=== PATIENT | female | born 1940 | race Caucasian/White ===

== ENCOUNTER 2017-01-08 12:08 | Inpatient (IN) | payer MEDICARE ==
[~2017-01-08] VITALS: Ht 165.1 cm; Wt 52.9 kg
[2017-01-08] VITALS (17 sets, daily range): BP systolic 102–159; BP diastolic 4–87; PULSE 56–78; RESP 15–24; TEMP 97.3–98.3; O2SAT 96–98
[~2017-01-08 12:08] MED LIST: ASPI81TA82 PO; GLUCTAB PO; LIPI10TA PO; LISI-366 PO; METO50CR PO; NORV10TA PO; RIVA20 PO
--- NOTE | 2017-01-08 12:43 | PD ---
HPI Chief Complaint: GI Complaint Time Seen by Provider: 12:43 Travel History International Travel<30 days: No Contact w/Intl Traveler<30days: No Traveled to known affect area: No History of Present Illness HPI 76-year-old female with history of A. fib, on Xarelto, hypertension, cervical cancer, diabetes, remote ICH, presents to the emergency department for evaluation of coffee-ground emesis 1 today. Patient resides at [facility]. She is transferred here for further evaluation of this. Patient denies any pain. She is overall a poor historian but states she has not been feeling well today. Does report nausea and vomiting. Reports abdominal cramping and loose stools. Denies any urinary symptoms. Patient has no other symptoms to report at this time. PFSH Past Medical History Atrial Fibrillation: Yes Cancer: Yes (CERVICAL CANCER) Cardiovascular Problems: Yes Diabetes: Yes Patient Takes Glucophage: No Endocrine: Yes Genitourinary: No Hepatitis: No Hiatal Hernia: No Hypertension: Yes Immune Disorder: No Musculoskeletal: No Neurologic: Yes (ICH) Psychiatric: No Reproductive: No Respiratory: Yes Thyroid Disease: No Tetanus Vaccination: Unknown Dilation and Curettage (D&C): Yes Past Surgical History AICD: No Body Medical Devices: PORT RT CHEST Gynecologic Surgery: Yes (tandem and ovoid) Joint Replacement: No Pacemaker: No Other Surgery: Yes (hx of skin grafts) Social History Alcohol Use: Yes (socially) Tobacco Use: No Substance Use: No Allergies-Medications (Allergen,Severity, Reaction): Coded Allergies: No Known Allergies (Unverified , 01/01/15) Reported Meds & Prescriptions Reported Meds & Active Scripts Active Reported Xarelto (Rivaroxaban) 15 Mg Tab 15 Mg PO DAILY Poly-Iron 150 (Polysaccharide Iron Complex) 150 Mg Cap 150 Mg PO DAILY One Daily (Multiple Vitamin) 1 Tab 1 Tab PO DAILY Omeprazole 20 Mg Tab 20 Mg PO DAILY Nifedipine ER 24 HR (Nifedipine) 90 Mg Tab 90 Mg PO DAILY Mirtazapine 7.5 Mg Tab 7.5 Mg PO HS Metoprolol Tartrate 50 Mg Tab 50 Mg PO BID Metformin (Metformin HCl) 500 Mg Tab 500 Mg PO DAILY With a meal Lisinopril 40 Mg Tab 40 Mg PO DAILY Lactobacillus Acidophilus 1 Tab Tab 1 Tab PO BID Keppra Liq (Levetiracetam) 500 Mg/5 Ml Soln 100 Mg PO BID Hydralazine HCl 25 Mg Tablet 25 Mg PO BID Flagyl (Metronidazole) 500 Mg Tab 500 Mg PO TID Cipro (Ciprofloxacin HCl) 500 Mg Tab 500 Mg PO BID Atorvastatin (Atorvastatin Calcium) 10 Mg Tab 10 Mg PO HS Aspirin 325 Mg Tab 325 Mg PO DAILY Amlodipine (Amlodipine Besylate) 10 Mg Tab 10 Mg PO DAILY Review of Systems ROS Limitations: Poor Historian Except as stated in HPI: all other systems reviewed are Neg Physical Exam Exam Limitations: Poor Historian Narrative GENERAL: Thin elderly female patient, lying in bed, in no acute distress. SKIN: Focused skin assessment warm/dry. Pallor HEAD: Atraumatic. Normocephalic. EYES: Pupils equal and round. No scleral icterus. No injection or drainage. ENT: No nasal bleeding or discharge. Mucous membranes pink and moist. NECK: Trachea midline. No JVD. CARDIOVASCULAR: Regular rate and irregular rhythm. RESPIRATORY: No accessory muscle use. Clear to auscultation. Breath sounds equal bilaterally. GASTROINTESTINAL: Abdomen soft, non-tender, nondistended. Hepatic and splenic margins not palpable. RECTAL EXAM: No masses or tenderness, stool is brown. MUSCULOSKELETAL: No obvious deformities. No clubbing. No cyanosis. No edema. NEUROLOGICAL: Awake and alert. No obvious cranial nerve deficits. Motor grossly within normal limits. Normal speech. Data Data Last Documented VS Vital Signs Date Time Temp Pulse Resp B/P Pulse Ox O2 Delivery O2 Flow Rate FiO2 01/08/17 13:00 64 16 102/51 98 Room Air 01/08/17 12:25 97.8 Orders Complete Blood Count With Diff (01/08/17 12:42) Comprehensive Metabolic Panel (01/08/17 12:42) Prothrombin Time / Inr (Pt) (01/08/17 12:42) Act Partial Throm Time (Ptt) (01/08/17 12:42) Urinalysis - C+S If Indicated (01/08/17 12:42) Type And Screen (01/08/17 12:42) Ecg Monitoring (01/08/17 12:42) Iv Access Insert/Monitor (01/08/17 12:42) Oximetry (01/08/17 12:42) Pantoprazole Inj (Protonix Inj) (01/08/17 12:45) Sodium Chloride 0.9% Flush (Ns Flush) (01/08/17 12:45) Electrocardiogram (01/08/17 ) Sodium Chlorid 0.9% 500 Ml Inj (Ns 500 M (01/08/17 12:45) Red Blood Cells (Rbc) (01/08/17 13:04) Blood Product Administration .UPON TRANSFUSION (01/08/17 13:04) Sodium Chlor 0.9% 250 Ml Inj (Ns 250 Ml (01/08/17 13:15) Pantoprazole Inj (Protonix Inj) (01/08/17 13:15) Admit Order (Ed Use Only) (01/08/17 13:55) Labs Laboratory Tests Test 01/08/17 01/08/17 12:40 13:04 White Blood Count 14.4 TH/MM3 Red Blood Count 1.88 MIL/MM3 Hemoglobin 5.4 GM/DL Hematocrit 16.6 % Mean Corpuscular Volume 88.4 FL Mean Corpuscular Hemoglobin 28.9 PG Mean Corpuscular Hemoglobin 32.7 % Concent Red Cell Distribution Width 14.9 % Platelet Count 535 TH/MM3 Mean Platelet Volume 7.7 FL Neutrophils (%) (Auto) 87.7 % Lymphocytes (%) (Auto) 7.6 % Monocytes (%) (Auto) 4.3 % Eosinophils (%) (Auto) 0.3 % Basophils (%) (Auto) 0.1 % Neutrophils # (Auto) 12.6 TH/MM3 Lymphocytes # (Auto) 1.1 TH/MM3 Monocytes # (Auto) 0.6 TH/MM3 Eosinophils # (Auto) 0.0 TH/MM3 Basophils # (Auto) 0.0 TH/MM3 CBC Comment AUTO DIFF Differential Total Cells 100 Counted Neutrophils % (Manual) 81 % Band Neutrophils % 10 % Lymphocytes % 7 % Monocytes % 1 % Basophils % 1 % Neutrophils # (Manual) 13.1 TH/MM3 Differential Comment FINAL DIFF MANUAL Platelet Estimate HIGH Platelet Morphology Comment NORMAL Ovalocytes 1+ Acanthocytes OCC Keratocytes OCC Prothrombin Time 12.1 SEC Prothromb Time International 1.1 RATIO Ratio Activated Partial 22.7 SEC Thromboplast Time Sodium Level 142 MEQ/L Potassium Level 4.6 MEQ/L Chloride Level 106 MEQ/L Carbon Dioxide Level 24.9 MEQ/L Anion Gap 11 MEQ/L Blood Urea Nitrogen 45 MG/DL Creatinine 1.53 MG/DL Estimat Glomerular Filtration 33 ML/MIN Rate Random Glucose 239 MG/DL Calcium Level 8.3 MG/DL Total Bilirubin 0.2 MG/DL Aspartate Amino Transf 15 U/L (AST/SGOT) Alanine Aminotransferase 13 U/L (ALT/SGPT) Alkaline Phosphatase 62 U/L Total Protein 5.7 GM/DL Albumin 2.5 GM/DL Blood Type A POSITIVE Antibody Screen NEGATIVE Crossmatch Leukocyte-Reduced Red Blood Cells Blood Bank Comment MDM Medical Decision Making Medical Screen Exam Complete: Yes Emergency Medical Condition: Yes Medical Record Reviewed: Yes Differential Diagnosis GI bleed upper versus lower versus esophageal varices versus peptic ulcer disease versus gastroenteritis versus gastritis versus colitis versus symptomatic anemia versus electrolyte abnormality Narrative Course 76 year-old female presents to the emergency department for evaluation. Patient appears without distress. Abdominal exam is benign. Francisco Javier-prompt of stool is positive. Abrasion is given IV Protonix. Half-normal saline bolus. Labs are drawn to include type and screen. Laboratory Tests Test 01/08/17 12:40 White Blood Count 14.4 TH/MM3 Red Blood Count 1.88 MIL/MM3 Hemoglobin 5.4 GM/DL Hematocrit 16.6 % Mean Corpuscular Volume 88.4 FL Mean Corpuscular Hemoglobin 28.9 PG Mean Corpuscular Hemoglobin 32.7 % Concent Red Cell Distribution Width 14.9 % Platelet Count 535 TH/MM3 Mean Platelet Volume 7.7 FL Neutrophils (%) (Auto) 87.7 % Lymphocytes (%) (Auto) 7.6 % Monocytes (%) (Auto) 4.3 % Eosinophils (%) (Auto) 0.3 % Basophils (%) (Auto) 0.1 % Neutrophils # (Auto) 12.6 TH/MM3 Lymphocytes # (Auto) 1.1 TH/MM3 Monocytes # (Auto) 0.6 TH/MM3 Eosinophils # (Auto) 0.0 TH/MM3 Basophils # (Auto) 0.0 TH/MM3 CBC Comment AUTO DIFF Prothrombin Time 12.1 SEC Prothromb Time International 1.1 RATIO Ratio Activated Partial 22.7 SEC Thromboplast Time Sodium Level 142 MEQ/L Potassium Level 4.6 MEQ/L Chloride Level 106 MEQ/L Carbon Dioxide Level 24.9 MEQ/L Anion Gap 11 MEQ/L Blood Urea Nitrogen 45 MG/DL Creatinine 1.53 MG/DL Estimat Glomerular Filtration 33 ML/MIN Rate Random Glucose 239 MG/DL Calcium Level 8.3 MG/DL Total Bilirubin 0.2 MG/DL Aspartate Amino Transf 15 U/L (AST/SGOT) Alanine Aminotransferase 13 U/L (ALT/SGPT) Alkaline Phosphatase 62 U/L Total Protein 5.7 GM/DL Albumin 2.5 GM/DL Patient is with hemoglobin of 5.9. 2 units of packed red blood cells are ordered. Leukocytosis of 14.4, neutrophilia of 12.6, possibly due to fluid deficit. BUN is 45 with a creatinine of 1.53. GFR 33. I discussed the patient with my attending physician. Patient will be started on Protonix drip. A call is placed to . Patient's primary care provider is Dr. Xiong. [facility] are contacted for admission. 1328 I spoke with JOE Chris electronics system mechanic. He recommends admission to hospital and will consult on the patient [address] Scott. Patient will be admitted to the [facility]. She requested ICU admission. 1540 Pt remains in ED; having large amount of coffee ground emesis; + hemaprompt. Call placed to for update/ Pt started on sandostatin gtt. [address] Chen. He is aware of the pt's current situation. Diagnosis Primary Impression: GI bleed Qualified Code: K92.2 - Gastrointestinal hemorrhage, unspecified gastrointestinal hemorrhage type Additional Impressions: Symptomatic anemia Anticoagulants taken within 24 hours prior to hospitalization Admitting Information Admitting Physician Requests: Admit Condition: Stable Donna Chamorro Jan 08, 2017 12:43
[2017-01-08] MEDS ORDERED: LEVE500S PO (12:44)
[2017-01-08] MEDS ORDERED: HYDR-3799 PO (12:44)
[2017-01-08] MEDS ORDERED: LACTTAB8 PO (12:44)
[2017-01-08] MEDS ORDERED: METR-1 PO (12:44)
[2017-01-08] MEDS ORDERED: METF500T PO (12:44)
[2017-01-08] MEDS ORDERED: OMEP20TA PO (12:44)
[2017-01-08] MEDS ORDERED: ATOR10TA15 PO (12:44)
[2017-01-08] MEDS ORDERED: NIFE1TAB PO (12:44)
[2017-01-08] MEDS ORDERED: METO50TA PO (12:44)
[2017-01-08] MEDS ORDERED: ASPI325T PO (12:44)
[2017-01-08] MEDS ORDERED: AMLO10TA2 PO (12:44)
[2017-01-08] MEDS ORDERED: MIRT1TAB PO (12:44)
[2017-01-08] MEDS ORDERED: CIPR-9 PO (12:44)
[2017-01-08] MEDS ORDERED: MULT-207 PO (12:44)
[2017-01-08] MEDS ORDERED: LISI40TA PO (12:44)
[2017-01-08] MEDS ORDERED: SODIUM CHLORIDE 0.9% FLUSH 10 ML FLUSH IVF PRN (12:45)
[2017-01-08] MEDS ORDERED: PANTOPRAZOLE SODIUM 40 MG VIAL IVP ONE (12:45)
[2017-01-08] MEDS ORDERED: NU-IRON PO (12:45)
[2017-01-08] MEDS ORDERED: XARE15TA PO (12:45)
[2017-01-08] MEDS ORDERED: SODIUM CHLORID 0.9% 500 ML INJ 500 ML IV ONE (12:45)
[2017-01-08 12:57] LABS: AUTOMATED NEUTROPHIL # 12.6 TH/MM3 (1.8-7.7); BASOPHIL % 0.1 % (0.0-2.0); EOSINOPHIL % 0.3 % (0.0-4.0); LYMPH % 7.6 % (9.0-44.0); LYMPHOCYTE # 1.1 TH/MM3 (1.0-4.8); MEAN CELL VOLUME 88.4 FL (80.0-100.0); MEAN CORPUSCULAR HEMOGLOBIN 28.9 PG (27.0-34.0); MEAN CORPUSCULAR HGB CONC 32.7 % (32.0-36.0); MONO % 4.3 % (0.0-8.0); NEUT % 87.7 % (16.0-70.0); PLATELET COUNT 535 TH/MM3 (150-450); RED BLOOD COUNT 1.88 MIL/MM3 (4.00-5.30); RED CELL DISTRIBUTION WIDTH 14.9 % (11.6-17.2); WHITE BLOOD COUNT 14.4 TH/MM3 (4.0-11.0)
[2017-01-08 13:01] LABS: HEMO FLAGS AUTO DIFF
[2017-01-08 13:06] LABS: HEMATOCRIT 16.6 % (35.0-46.0)
[2017-01-08 13:12] LABS: APTT (PATIENT) 22.7 SEC (24.3-30.1); INTERNATIONAL NORMALIZED RATIO 1.1 RATIO; PROTHROMBIN TIME - PATIENT 12.1 SEC (9.8-11.6)
[2017-01-08 13:14] LABS: ALT (GPT) 13 U/L (10-53); ANION GAP 11 MEQ/L (5-15); AST (GOT) 15 U/L (15-37); BICARBONATE 24.9 MEQ/L (21.0-32.0); BLOOD UREA NITROGEN 45 MG/DL (7-18); CHLORIDE 106 MEQ/L (98-107); GLOMERULAR FILTRATION RATE 33 ML/MIN (>89); POTASSIUM 4.6 MEQ/L (3.5-5.1); SODIUM (NA) 142 MEQ/L (136-145)
[2017-01-08] MEDS ORDERED: SODIUM CHLOR 0.9% 250 ML INJ 250 ML IV ONE (13:15)
[2017-01-08 13:16] LABS: ALKALINE PHOSPHATASE 62 U/L (45-117); TOTAL BILIRUBIN ADULT 0.2 MG/DL (0.2-1.0)
[2017-01-08] MEDS: PANTOPRAZOLE INJ 80 MG in SODIUM CHLORIDE 0.9% INJ 100 ML IV SCH ×2 (13:32→23:27)
[2017-01-08 13:48] LABS: ACANTHOCYTES OCC (NORMAL); BANDS 10 % (0-6); BASOPHILS 1 % (0-2); NEUTROPHIL # MANUAL DIFF 13.1 TH/MM3 (1.8-7.7); OVALOCYTES 1+ (NORMAL); POLYS (SEG NEUTROPHILS) 81 % (16-70); WBC DIFF SAMPLE 100
[2017-01-08 13:49] LABS: KERATOCYTES OCC (NORMAL); PLATELET ESTIMATE SMEAR HIGH (NORMAL)
[2017-01-08 13:50] LABS: PLATELET MORPHOLOGY NORMAL (NORMAL); SCAN/DIFF FINAL DIFF MANUAL
[2017-01-08] MEDS ORDERED: ONDANSETRON HCL 4 MG/2 ML VIAL IVP PRN (14:00)
[2017-01-08] MEDS ORDERED: SODIUM CHLORIDE 0.9% FLUSH 10 ML FLUSH IV FLUSH PRN (14:00)
[2017-01-08] MEDS ORDERED: NALOXONE HCL 0.4 MG/ML AMP IV PRN (14:00)
[2017-01-08] MEDS: D5-1/2 NS + KCL 20 MEQ INJ 1,000 ML IV SCH ×2 (14:27→23:27)
[2017-01-08] MEDS: OCTREOTIDE INJ 500 MCG in SODIUM CHLORID 0.9% 500 ML INJ 500 ML IV SCH (16:18)
--- NOTE | 2017-01-08 16:40 | RADRPT ---
EXAM DATE/TIME: 01/08/2017 15:56 [facility] COMPARISON: No previous studies available for comparison. INDICATIONS : Nausea and vomiting MEDICAL HISTORY : Unknown SURGICAL HISTORY : Infus a port ENCOUNTER: Initial ACUITY: 1 day PAIN SCORE: Non-responsive. LOCATION: Bilateral chest FINDINGS: There is lobar consolidation left lower lung causing loss of delineation of the entire left hemidiaph ragm and inferior left heart border. There is also meniscal interface laterally suggesting possible coexistent left pleural effusion. The right lung is clear. The heart is normal in size. The centra l bronchopulmonary markings are fairly well delineated. [id number]-[id number] catheter tip projects over the cavoatrial junction. CONCLUSION: Left lower lobar consolidation and possible associated pleural effusion. Ronni Casas MD on January 08, 2017 at 16:37 Board Certified Radiologist. This report was verified electronically.
[2017-01-08] MEDS ORDERED: GLUCAGON 1 MG/ML VIAL OTHER PRN (17:45)
[2017-01-08] MEDS ORDERED: DEXTROSE 50% IN WATER 50 ML VIAL(D50) IV PRN (17:45)
--- NOTE | 2017-01-08 17:59 | HHI.HP ---
[facility] Kathy Xiong M.D. Admission Diagnosis GI bleed; symptomatic anemia Diagnoses: Chief Complaint: coffee ground emesis Travel History International Travel<30 Days: No Contact w/Intl Traveler <30 Da: No Traveled to Known Affected Are: No History of Present Illness This a 76-year-old elderly female sent from a local assisted for evaluation of coffee-ground emesis. Patient is a poor historian, possibly demented and unable to provide any details. Patient was significant past medical history of A. fib on Xarelto, hypertension, cervical cancer, type 2 diabetes, remote intracranial bleed. Patient has no complaints when asked. Reported to emergency room that she had abdominal pain and loose stools. Review of assisted records shows that patient was recently diagnosed with C. difficile and was put on Flagyl. She is also completing treatment for urinary tract infection. In the emergency room, laboratory workup was completed. CBC was significant for leukocytosis, WBC 14.4. She was noted significantly anemic, hemoglobin 5.4 hematocrit 16.6. Heme-positive stools. BMP significant for acute renal injury, BUN 45, creatinine 1.43. Random glucose 239. INR 1.1. Chest x-ray completed. There is no reported fever. Patient was started on Protonix and octreotide drip. 2 units of blood have been ordered. Patient had a large amount of coffee-ground emesis while in the ER, proximally [address] Chen was called from the emergency room and will be seeing patient. Patient will be admitted to the intensive care unit for further evaluation and treatment. 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 Hancock Hypertension Type 2 diabetes A. fib on Xarelto Thyroid mass, had biopsy was negative Possible dementia Possible seizure disorder Recent diagnosis of UTI and C. difficile Past Surgical History Thyroid biopsy Port insertion Gynecological procedure Skin grafts Reported Medications Reported Meds & Active Scripts Active Reported Xarelto (Rivaroxaban) 15 Mg Tab 15 Mg PO DAILY Poly-Iron 150 (Polysaccharide Iron Complex) 150 Mg Cap 150 Mg PO DAILY One Daily (Multiple Vitamin) 1 Tab 1 Tab PO DAILY Omeprazole 20 Mg Tab 20 Mg PO DAILY Nifedipine ER 24 HR (Nifedipine) 90 Mg Tab 90 Mg PO DAILY Mirtazapine 7.5 Mg Tab 7.5 Mg PO HS Metoprolol Tartrate 50 Mg Tab 50 Mg PO BID Metformin (Metformin HCl) 500 Mg Tab 500 Mg PO DAILY With a meal Lisinopril 40 Mg Tab 40 Mg PO DAILY Lactobacillus Acidophilus 1 Tab Tab 1 Tab PO BID Keppra Liq (Levetiracetam) 500 Mg/5 Ml Soln 100 Mg PO BID Hydralazine HCl 25 Mg Tablet 25 Mg PO BID Flagyl (Metronidazole) 500 Mg Tab 500 Mg PO TID Cipro (Ciprofloxacin HCl) 500 Mg Tab 500 Mg PO BID Atorvastatin (Atorvastatin Calcium) 10 Mg Tab 10 Mg PO HS Aspirin 325 Mg Tab 325 Mg PO DAILY Amlodipine (Amlodipine Besylate) 10 Mg Tab 10 Mg PO DAILY Allergies: Coded Allergies: No Known Allergies (Unverified , 01/01/15) Active Ordered Medications Inpatient Medications Naloxone HCl 0.4 mg 0.4 mg UNSCH PRN IV SEE LABEL COMMENTS; Start 01/08/17 at 14 :00 Octreotide Acetate/Sodium Chloride (SandoSTATIN INJ/ NS 500 ml Inj) 500.5 ml @ 50 mls/hr Q10H IV Last administered on 01/08/17 16:18; Start 01/08/17 at 15:45 Ondansetron HCl (Zofran Inj) 4 mg Q6H PRN IVP NAUSEA OR VOMITING; Start at 14:00 Pantoprazole Sodium (Protonix Inj) 40 mg ONCE ONCE IVP Last administered on 12:48; Start 01/08/17 at 12:45; Stop 01/08/17 at 12:46; Status DC Pantoprazole Sodium 80 mg/ Sodium Chloride 100 ml @ 10 mls/hr Q10H IV Last administered on 01/08/17 13:32; Start 01/08/17 at 13:15 Potassium Chloride/Dextrose/ Sod Cl (D5-1/2 NS + KCl 20 Meq Inj) 1,000 ml @ 100 mls/hr Q10H IV Last administered on 01/08/17 14:27; Start 01/08/17 at 14:00 Sodium Chloride (NS Flush) 2 ml BID IV FLUSH ; Start 01/08/17 at 21:00 Sodium Chloride 2 ml 2 ml UNSCH PRN IVF FLUSH AFTER USING IV ACCESS Last administered on 6/3/17at 12:49; Start 01/08/17 at 12:45; Stop 01/08/17 at 14:16; Status DC Family History Unable to obtain Social History Patient resides at a assisted, no documented history of alcohol, no substance abuse, no tobacco abuse Physical Exam Vital Signs Vital Signs Date Time Temp Pulse Resp B/P Pulse Ox O2 Delivery O2 Flow Rate FiO2 01/08/17 17:20 98.2 72 22 117/64 97 Room Air 01/08/17 17:15 98.3 77 17 118/65 97 Room Air 01/08/17 17:10 98.3 71 16 116/56 98 Room Air 01/08/17 17:00 78 21 114/58 97 Room Air 01/08/17 16:00 97.8 72 16 121/58 97 Room Air 01/08/17 15:00 67 17 116/87 96 Room Air 01/08/17 14:45 97.6 64 21 102/66 98 Room Air 01/08/17 14:40 97.9 68 18 112/57 97 Room Air 01/08/17 14:35 56 24 103/59 98 Room Air 01/08/17 14:00 59 16 110/56 98 Room Air 01/08/17 13:00 64 16 102/51 98 Room Air 01/08/17 12:45 22 97 Room Air 01/08/17 12:29 16 01/08/17 12:25 97.8 60 20 109/52 98 Room Air Physical Exam GENERAL: This is a well-nourished, well-developed patient, in no apparent distress. SKIN: Pale, cool dry HEAD: Atraumatic. Normocephalic. No temporal or scalp tenderness. EYES: Pupils equal round and reactive. Extraocular motions intact. No scleral icterus. No injection or drainage. ENT: Nose without bleeding, purulent drainage or septal hematoma. Throat without erythema, tonsillar hypertrophy or exudate. Uvula midline. Airway patent. NECK: Trachea midline. No JVD or lymphadenopathy. Supple, nontender, no meningeal signs. CARDIOVASCULAR: Regular rate and rhythm without murmurs, gallops, or rubs. RESPIRATORY: Clear to auscultation. Breath sounds equal bilaterally. No wheezes , rales, or rhonchi. GASTROINTESTINAL: Abdomen soft, non-tender, nondistended. No hepato-splenomegaly , or palpable masses. No guarding. MUSCULOSKELETAL: Extremities without clubbing, cyanosis, or edema. No joint tenderness, effusion, or edema noted. No calf tenderness. Negative Homans sign bilaterally. NEUROLOGICAL: Awake, alert, oriented to self and place. Poor historian. Following simple commands. Laboratory Laboratory Tests Test 01/08/17 01/08/17 12:40 13:04 White Blood Count 14.4 Red Blood Count 1.88 Hemoglobin 5.4 Hematocrit 16.6 Mean Corpuscular Volume 88.4 Mean Corpuscular Hemoglobin 28.9 Mean Corpuscular Hemoglobin 32.7 Concent Red Cell Distribution Width 14.9 Platelet Count 535 Mean Platelet Volume 7.7 Neutrophils (%) (Auto) 87.7 Lymphocytes (%) (Auto) 7.6 Monocytes (%) (Auto) 4.3 Eosinophils (%) (Auto) 0.3 Basophils (%) (Auto) 0.1 Neutrophils # (Auto) 12.6 Lymphocytes # (Auto) 1.1 Monocytes # (Auto) 0.6 Eosinophils # (Auto) 0.0 Basophils # (Auto) 0.0 CBC Comment AUTO DIFF Differential Total Cells 100 Counted Neutrophils % (Manual) 81 Band Neutrophils % 10 Lymphocytes % 7 Monocytes % 1 Basophils % 1 Neutrophils # (Manual) 13.1 Differential Comment FINAL DIFF MANUAL Platelet Estimate HIGH Platelet Morphology Comment NORMAL Ovalocytes 1+ Acanthocytes OCC Keratocytes OCC Prothrombin Time 12.1 Prothromb Time International 1.1 Ratio Activated Partial 22.7 Thromboplast Time Sodium Level 142 Potassium Level 4.6 Chloride Level 106 Carbon Dioxide Level 24.9 Anion Gap 11 Blood Urea Nitrogen 45 Creatinine 1.53 Estimat Glomerular Filtration 33 Rate Random Glucose 239 Calcium Level 8.3 Total Bilirubin 0.2 Aspartate Amino Transf 15 (AST/SGOT) Alanine Aminotransferase 13 (ALT/SGPT) Alkaline Phosphatase 62 Total Protein 5.7 Albumin 2.5 Blood Type A POSITIVE Antibody Screen NEGATIVE Crossmatch Leukocyte-Reduced Red Blood Cells Blood Bank Comment Result Diagram: 01/08/17 1240 01/08/17 1240 Imaging Last Impressions Chest X-Ray 01/08/17 0000 Signed Impressions: Service Date/Time: Sunday, January 08, 2017 15:56 - CONCLUSION: Left lower lobar consolidation and possible associated pleural effusion. Ronni Casas MD Assessment and Plan Problem List: (1) GI bleed (2) KRISTINA (acute kidney injury) (3) Symptomatic anemia (4) Atrial fibrillation (5) Dementia (6) Clostridium difficile infection (7) History of CVA (cerebrovascular accident) (8) Diabetes 1.5, managed as type 2 (9) left lower infiltrate Assessment and Plan Admit to Dr. Scott 76-year-old white female presented from assisted with coffee-ground emesis, heme-positive stools. Was noted severely anemic, hemoglobin 5.4, hematocrit 16.6. Patient on Xarelto for chronic A. fib. -Gastroenterology has been consulted for evaluation. -Keep patient nothing by mouth for now Continue with cautious hydration Continue with serial H&H's She will receive 2 units of packed cells Continue with octreotide and protonic strip Acute renal injury Continue with cautious hydration Avoid nephrotoxic agents Follow up BMP in the morning Loose stools, recent diagnosis of C. difficile. On Flagyl PO at SNF Stools for C. difficile will be ordered Continue with Flagyl 500 mg IV every 8. Chest x-ray findings of left lower lobe consolidation, noted with leukocytosis Start empiric antibiotics, Rocephin 1 g IV daily Recent UTI -Repeat UA A. fib, stable Continuous cardiac telemetry We will hold Xarelto History hypertension, blood pressure low 100s -Hold antihypertensive agent Type 2 diabetes, uncontrolled Accu-Cheks before meals and at bedtime with insulin therapy as needed Possible underlying dementia Monitor patient closely Home medications reviewed, initiated as indicated SCDs for DVT prophylaxis, avoid anticoagulation Protonix gtt for GI prophylaxis Plan of care has been discussed with the patient, attending and registered nurse. Further management of the patient will be dependent on the hospital course Patient's condition is guarded. Patient was seen by myself and Dr. Scott, this H&P is written on her behalf Physician Certification 2 Midnight Certification Type: Admission for Inpatient Services Order for Inpatient Services The services are ordered in accordance with Medicare regulations or non- Medicare payer requirements, as applicable. In the case of services not specified as inpatient-only, they are appropriately provided as inpatient services in accordance with the 2-midnight benchmark. Estimated LOS (days): 2 2 days is the estimated time the patient will need to remain in the hospital, assuming treatment plan goals are met and no additional complications. 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
[2017-01-08] MEDS: cefTRIAXone INJ 1,000 MG in SODIUM CHLORIDE 0.9% INJ 100 ML IV SCH (18:00)
[2017-01-08] MEDS: metroNIDAZOLE 500 MG INJ 100 ML IV SCH (18:00)
[2017-01-08] MEDS ORDERED: CHLORHEXIDINE GLUCONATE 2 % 1 PACK (2 CLOTHS)(extra cloths) TOPICAL PRN (19:30)
[2017-01-08 20:42] LABS: C. DIFF EPI 027 PRESUMPTIVE NEGATIVE (NEGATIVE)
[2017-01-08] MEDS: INSULIN ASPART SUPPLEMENTAL SCALE SQ SCH (21:00)
[2017-01-08] MEDS: SODIUM CHLORIDE 0.9% FLUSH 10 ML FLUSH IV FLUSH SCH (21:00)
[2017-01-08 21:22] LABS: C. DIFF TOXIN PCR POSITIVE (NEGATIVE)
[2017-01-09] VITALS (16 sets, daily range): BP systolic 108–163; BP diastolic 55–76; PULSE 52–78; RESP 14–22; TEMP 97.5–98.1; O2SAT 89–99
[2017-01-09 00:02] LABS: HEMATOCRIT 27.6 % (35.0-46.0); REVIEW FLAG FINAL
[2017-01-09] MEDS: OCTREOTIDE INJ 500 MCG in SODIUM CHLORID 0.9% 500 ML INJ 500 ML IV SCH ×3 (00:10→11:17)
[2017-01-09] MEDS: metroNIDAZOLE 500 MG INJ 100 ML IV SCH ×2 (01:55→09:50)
[2017-01-09] MEDS: CHLORHEXIDINE GLUCONATE 2 % 1 PACK (2 CLOTHS)(taper/protocol) TOPICAL SCH (04:00)
[2017-01-09 06:54] LABS: AUTOMATED NEUTROPHIL # 15.2 TH/MM3 (1.8-7.7); BASOPHIL % 0.2 % (0.0-2.0); EOSINOPHIL % 0.3 % (0.0-4.0); HEMATOCRIT 26.9 % (35.0-46.0); HEMO FLAGS DIFF FINAL; LYMPH % 7.1 % (9.0-44.0); LYMPHOCYTE # 1.2 TH/MM3 (1.0-4.8); MEAN CELL VOLUME 90.5 FL (80.0-100.0); MEAN CORPUSCULAR HEMOGLOBIN 30.5 PG (27.0-34.0); MEAN CORPUSCULAR HGB CONC 33.7 % (32.0-36.0); MONO % 6.1 % (0.0-8.0); NEUT % 86.3 % (16.0-70.0); PLATELET COUNT 446 TH/MM3 (150-450); RED BLOOD COUNT 2.98 MIL/MM3 (4.00-5.30); WHITE BLOOD COUNT 17.6 TH/MM3 (4.0-11.0)
[2017-01-09] MEDS: INSULIN ASPART SUPPLEMENTAL SCALE SQ SCH ×4 (07:00→21:00)
[2017-01-09 07:08] LABS: BICARBONATE 23.8 MEQ/L (21.0-32.0); POTASSIUM 4.4 MEQ/L (3.5-5.1)
[2017-01-09] MEDS: SODIUM CHLORIDE 0.9% FLUSH 10 ML FLUSH IV FLUSH SCH ×2 (09:00→21:00)
[2017-01-09] MEDS: PANTOPRAZOLE INJ 80 MG in SODIUM CHLORIDE 0.9% INJ 100 ML IV SCH ×2 (09:50→17:28)
[2017-01-09] MEDS: D5-1/2 NS + KCL 20 MEQ INJ 1,000 ML IV SCH ×2 (11:17→20:00)
--- NOTE | 2017-01-09 12:17 | PD.CONS ---
HPI History of Present Illness This is a 76 year old female who was sent to the ER by residential due to coffee-ground emesis. Patient is a poor historian. Patient recently diagnosed with C diff and was treated with Flagyl. Noted that patient did have an episode of large amount of coffee ground emesis while being evaluated in ER. At admission she was noted to be anemic and have heme-positive stools. Patient is s /p 2 units of blood. Denies abdominal pain today. Spoke with RN, who states patient has had no emesis or signs of active bleeding. (Marzena Sena) PFSH Past Medical History CVA due to intracranial bleed Afib (on Xarelto) Hypertension Cervical cancer Type 2 Diabetes Thyroid mass, biopsy negative Possible dementia Possible seizure disorder Recent diagnosis of UTI and C difficile Past Surgical History Thyroid biopsy Port insertion Gynecological procedure Skin grafts (Marzena Sena) Coded Allergies: No Known Allergies (Unverified , 01/01/15) Medications Current Medications Medications (Trade) Dose Ordered Sig/Leida Route PRN Reason Start Time Stop Time Status Last Admin Dose Admin Pantoprazole Sodium 80 mg/ Sodium Chloride 100 ml @ 10 mls/hr Q10H IV 01/08/17 13:15 01/09/17 09:50 Potassium Chloride/Dextrose/ Sod Cl (D5-1/2 NS + KCl 20 Meq Inj) 1,000 ml @ 100 mls/hr Q10H IV 01/08/17 14:00 01/09/17 11:17 Sodium Chloride (NS Flush) 2 ml UNSCH PRN IV FLUSH FLUSH AFTER USING IV ACCESS 01/08/17 14:00 Sodium Chloride (NS Flush) 2 ml BID IV FLUSH 01/08/17 21:00 01/09/17 09:00 Ondansetron HCl (Zofran Inj) 4 mg Q6H PRN IVP NAUSEA OR VOMITING 01/08/17 14:00 Naloxone HCl 0.4 mg 0.4 mg UNSCH PRN IV SEE LABEL COMMENTS 01/08/17 14:00 Octreotide Acetate/Sodium Chloride (SandoSTATIN INJ/ NS 500 ml Inj) 500.5 ml @ 50 mls/hr Q10H IV 01/08/17 15:45 01/09/17 11:17 Dextrose (D50w (Vial) Inj) 50 ml UNSCH PRN IV HYPOGLYCEMIA-SEE COMMENTS 01/08/17 17:45 Glucagon 1 mg 1 mg UNSCH PRN OTHER HYPOGLYCEMIA-SEE COMMENTS 01/08/17 17:45 Ceftriaxone Sodium 1000 mg/ Sodium Chloride 100 ml @ 200 mls/hr Q24H IV 01/08/17 18:00 01/08/17 18:00 Metronidazole (Flagyl 500 Mg Inj) 100 ml @ 100 mls/hr Q8H IV 01/08/17 18:00 01/09/17 09:50 Miscellaneous Information Patient in critical care unit? Ass... [id number] .XX 01/08/17 19:30 01/08/17 19:30 Chlorhexidine Gluconate (Chlorhexidine 2% Cloth) 3 pack DAILY@04 TOPICAL 01/09/17 04:00 01/13/17 04:01 01/09/17 04:00 Chlorhexidine Gluconate (Chlorhexidine 2% Cloth) 3 pack UNSCH PRN TOPICAL HYGIENIC CARE 01/08/17 19:30 01/13/17 19:23 Family History Unable to obtain Social History Lives in residential (Marzena Sena) Review of Systems ROS Unable to obtain (Marzena Sena) GI Exam Vitals I&O Vital Signs Date Time Temp Pulse Resp B/P Pulse Ox O2 Delivery O2 Flow Rate FiO2 01/09/17 08:00 63 01/09/17 08:00 98.1 63 20 161/69 97 01/09/17 07:00 61 18 108/55 96 01/09/17 06:00 60 01/09/17 04:00 63 01/09/17 04:00 98.1 63 19 156/67 96 01/09/17 02:00 65 01/09/17 00:00 67 01/09/17 00:00 98.0 67 19 146/68 97 01/08/17 22:00 69 01/08/17 20:00 70 01/08/17 20:00 98.2 70 20 159/72 96 01/08/17 18:33 71 01/08/17 18:33 71 15 154/66 97 01/08/17 18:15 97.3 01/08/17 17:20 98.2 72 22 117/64 97 Room Air 01/08/17 17:15 98.3 77 17 118/65 97 Room Air 01/08/17 17:10 98.3 71 16 116/56 98 Room Air 01/08/17 17:00 78 21 114/58 97 Room Air 01/08/17 16:00 97.8 72 16 121/58 97 Room Air 01/08/17 15:00 67 17 116/87 96 Room Air 01/08/17 14:45 97.6 64 21 102/66 98 Room Air 01/08/17 14:40 97.9 68 18 112/57 97 Room Air 01/08/17 14:35 56 24 103/59 98 Room Air 01/08/17 14:00 59 16 110/56 98 Room Air 01/08/17 13:00 64 16 102/51 98 Room Air 01/08/17 12:45 22 97 Room Air 01/08/17 12:29 16 01/08/17 12:25 97.8 60 20 109/52 98 Room Air I/O 01/08/17 01/08/17 01/08/17 01/09/17 01/09/17 01/09/17 07:00 15:00 23:00 07:00 15:00 23:00 Intake Total 1535 ml 1290 ml Output Total 250 ml Balance 1285 ml 1290 ml Intake IV Total 930 ml 1290 ml Packed Cells 605 ml Emesis 250 ml # Voids 2 2 # Bowel Movements 2 1 2 Imaging Last Impressions Chest X-Ray 01/08/17 0000 Signed Impressions: Service Date/Time: Sunday, January 08, 2017 15:56 - CONCLUSION: Left lower lobar consolidation and possible associated pleural effusion. Ronni Casas MD Laboratory Test 01/08/17 01/08/17 01/08/17 01/08/17 12:40 13:04 18:00 23:43 White Blood Count 14.4 TH/MM3 Red Blood Count 1.88 MIL/MM3 Hemoglobin 5.4 GM/DL 9.5 GM/DL Hematocrit 16.6 % 27.6 % Mean Corpuscular Volume 88.4 FL Mean Corpuscular Hemoglobin 28.9 PG Mean Corpuscular Hemoglobin 32.7 % Concent Red Cell Distribution Width 14.9 % Platelet Count 535 TH/MM3 Mean Platelet Volume 7.7 FL Neutrophils (%) (Auto) 87.7 % Lymphocytes (%) (Auto) 7.6 % Monocytes (%) (Auto) 4.3 % Eosinophils (%) (Auto) 0.3 % Basophils (%) (Auto) 0.1 % Neutrophils # (Auto) 12.6 TH/MM3 Lymphocytes # (Auto) 1.1 TH/MM3 Monocytes # (Auto) 0.6 TH/MM3 Eosinophils # (Auto) 0.0 TH/MM3 Basophils # (Auto) 0.0 TH/MM3 CBC Comment AUTO DIFF Differential Total Cells 100 Counted Neutrophils % (Manual) 81 % Band Neutrophils % 10 % Lymphocytes % 7 % Monocytes % 1 % Basophils % 1 % Neutrophils # (Manual) 13.1 TH/MM3 Differential Comment FINAL DIFF MANUAL Platelet Estimate HIGH Platelet Morphology Comment NORMAL Ovalocytes 1+ Acanthocytes OCC Keratocytes OCC Prothrombin Time 12.1 SEC Prothromb Time International 1.1 RATIO Ratio Activated Partial 22.7 SEC Thromboplast Time Sodium Level 142 MEQ/L Potassium Level 4.6 MEQ/L Chloride Level 106 MEQ/L Carbon Dioxide Level 24.9 MEQ/L Anion Gap 11 MEQ/L Blood Urea Nitrogen 45 MG/DL Creatinine 1.53 MG/DL Estimat Glomerular Filtration 33 ML/MIN Rate Random Glucose 239 MG/DL Calcium Level 8.3 MG/DL Total Bilirubin 0.2 MG/DL Aspartate Amino Transf 15 U/L (AST/SGOT) Alanine Aminotransferase 13 U/L (ALT/SGPT) Alkaline Phosphatase 62 U/L Total Protein 5.7 GM/DL Albumin 2.5 GM/DL Blood Type A POSITIVE Antibody Screen NEGATIVE Crossmatch Leukocyte-Reduced Red Blood Cells Blood Bank Comment Nasal Screen MRSA (PCR) MRSA DETECTED Stool C. difficile Toxin (PCR) POSITIVE Stl C. difficile Toxin PRESUMPTIVE Epiderm 027 NEGATIVE Test 01/09/17 05:39 White Blood Count 17.6 TH/MM3 Red Blood Count 2.98 MIL/MM3 Hemoglobin 9.1 GM/DL Hematocrit 26.9 % Mean Corpuscular Volume 90.5 FL Mean Corpuscular Hemoglobin 30.5 PG Mean Corpuscular Hemoglobin 33.7 % Concent Red Cell Distribution Width 16.0 % Platelet Count 446 TH/MM3 Mean Platelet Volume 8.2 FL Neutrophils (%) (Auto) 86.3 % Lymphocytes (%) (Auto) 7.1 % Monocytes (%) (Auto) 6.1 % Eosinophils (%) (Auto) 0.3 % Basophils (%) (Auto) 0.2 % Neutrophils # (Auto) 15.2 TH/MM3 Lymphocytes # (Auto) 1.2 TH/MM3 Monocytes # (Auto) 1.1 TH/MM3 Eosinophils # (Auto) 0.0 TH/MM3 Basophils # (Auto) 0.0 TH/MM3 CBC Comment DIFF FINAL Differential Comment Sodium Level 144 MEQ/L Potassium Level 4.4 MEQ/L Chloride Level 112 MEQ/L Carbon Dioxide Level 23.8 MEQ/L Anion Gap 8 MEQ/L Blood Urea Nitrogen 38 MG/DL Creatinine 1.18 MG/DL Estimat Glomerular Filtration 44 ML/MIN Rate Random Glucose 176 MG/DL Calcium Level 7.8 MG/DL Physical Examination HEENT: PERRLA; normocephalic; atraumatic; no jaundice. NECK: Neck is supple, no JVD, no lymphadenopathy. CHEST: CTA CARDIAC: RRR ABDOMEN: Soft, nondistended, nontender; no hepatosplenomegaly; bowel sounds x 4 quadrants EXTREMITIES: No clubbing, cyanosis, or edema. SKIN: Pale, cool, dry PACKAGING TECHNICIAN: Awake, alert, oriented to self and place. Poor historian. (Marzena Sena) Assessment and Plan Plan ASSESSMENT Coffee ground emesis with heme-positive stools, No further emesis or active bleeding noted. Patient on Xarelto for chronic Afib, Xarelto on hold. INR 1.1 ( /3) Patient anemic at admission, stable now. HH 5.4/16.6 (6/3), 9.1/26.9 (6/4). S/ p 2 units of blood. WBC 14.4 (6/3), 17.6 (6/4). Cdiff, on Flagyl PLAN -EGD once obtain appropriate consents -Obtain consents -NPO -IV fluids -Continue Flagyl for Cdiff -Monitor HH, transfuse as necessary -Further recommendations to follow based on results of above. Patient seen and examined by Dr. Chen and myself and this note is written on his behalf. (Marzena Sena) Physician Comments Seen and examined, plan as above, will need EGD after holding Xarelto for 3 days unless massive bleeding, will follow up with you for further recommendations . (Sundeep Chen MD) Marzena Sena Jan 09, 2017 12:17 Sundeep Chen MD Jan 09, 2017 12:34
--- NOTE | 2017-01-09 12:39 | HHI.PR ---
Subjective Subjective Remarks awakes to voice, demented has no complaints when asked no active bleeding, no hematemesis hh stable BP now trending up 140s Review of Systems Constitutional Constitutional Remarks 12 point ROS unable to complete Vitals/Results Intake & Output 01/08/17 01/08/17 01/09/17 15:00 23:00 07:00 Intake Total 1535 ml 1290 ml Output Total 250 ml Balance 1285 ml 1290 ml Intake IV Total 930 ml 1290 ml Packed Cells 605 ml Emesis 250 ml # Voids 2 2 # Bowel Movements 2 1 2 Vital Signs Vital Signs Date Time Temp Pulse Resp B/P Pulse Ox O2 Delivery O2 Flow Rate FiO2 01/09/17 12:00 52 18 142/64 98 01/09/17 12:00 52 01/09/17 11:00 55 17 97 01/09/17 10:00 78 22 96 01/09/17 10:00 78 01/09/17 09:00 71 18 140/69 89 01/09/17 08:00 63 01/09/17 08:00 98.1 63 20 161/69 97 01/09/17 07:00 61 18 108/55 96 01/09/17 06:00 60 01/09/17 04:00 63 01/09/17 04:00 98.1 63 19 156/67 96 01/09/17 02:00 65 01/09/17 00:00 67 01/09/17 00:00 98.0 67 19 146/68 97 01/08/17 22:00 69 01/08/17 20:00 70 01/08/17 20:00 98.2 70 20 159/72 96 01/08/17 18:33 71 01/08/17 18:33 71 15 154/66 97 01/08/17 18:15 97.3 01/08/17 17:20 98.2 72 22 117/64 97 Room Air 01/08/17 17:15 98.3 77 17 118/65 97 Room Air 01/08/17 17:10 98.3 71 16 116/56 98 Room Air 01/08/17 17:00 78 21 114/58 97 Room Air 01/08/17 16:00 97.8 72 16 121/58 97 Room Air 01/08/17 15:00 67 17 116/87 96 Room Air 01/08/17 14:45 97.6 64 21 102/66 98 Room Air 01/08/17 14:40 97.9 68 18 112/57 97 Room Air 01/08/17 14:35 56 24 103/59 98 Room Air 01/08/17 14:00 59 16 110/56 98 Room Air 01/08/17 13:00 64 16 102/51 98 Room Air 01/08/17 12:45 22 97 Room Air CBC/BMP: 01/09/17 0539 01/09/17 0539 Lab Results Laboratory Tests Test 01/08/17 01/08/17 01/08/17 01/08/17 12:40 13:04 18:00 23:43 White Blood Count 14.4 TH/MM3 Red Blood Count 1.88 MIL/MM3 Hemoglobin 5.4 GM/DL 9.5 GM/DL Hematocrit 16.6 % 27.6 % Mean Corpuscular Volume 88.4 FL Mean Corpuscular Hemoglobin 28.9 PG Mean Corpuscular Hemoglobin 32.7 % Concent Red Cell Distribution Width 14.9 % Platelet Count 535 TH/MM3 Mean Platelet Volume 7.7 FL Neutrophils (%) (Auto) 87.7 % Lymphocytes (%) (Auto) 7.6 % Monocytes (%) (Auto) 4.3 % Eosinophils (%) (Auto) 0.3 % Basophils (%) (Auto) 0.1 % Neutrophils # (Auto) 12.6 TH/MM3 Lymphocytes # (Auto) 1.1 TH/MM3 Monocytes # (Auto) 0.6 TH/MM3 Eosinophils # (Auto) 0.0 TH/MM3 Basophils # (Auto) 0.0 TH/MM3 CBC Comment AUTO DIFF Differential Total Cells 100 Counted Neutrophils % (Manual) 81 % Band Neutrophils % 10 % Lymphocytes % 7 % Monocytes % 1 % Basophils % 1 % Neutrophils # (Manual) 13.1 TH/MM3 Differential Comment FINAL DIFF MANUAL Platelet Estimate HIGH Platelet Morphology Comment NORMAL Ovalocytes 1+ Acanthocytes OCC Keratocytes OCC Prothrombin Time 12.1 SEC Prothromb Time International 1.1 RATIO Ratio Activated Partial 22.7 SEC Thromboplast Time Sodium Level 142 MEQ/L Potassium Level 4.6 MEQ/L Chloride Level 106 MEQ/L Carbon Dioxide Level 24.9 MEQ/L Anion Gap 11 MEQ/L Blood Urea Nitrogen 45 MG/DL Creatinine 1.53 MG/DL Estimat Glomerular Filtration 33 ML/MIN Rate Random Glucose 239 MG/DL Calcium Level 8.3 MG/DL Total Bilirubin 0.2 MG/DL Aspartate Amino Transf 15 U/L (AST/SGOT) Alanine Aminotransferase 13 U/L (ALT/SGPT) Alkaline Phosphatase 62 U/L Total Protein 5.7 GM/DL Albumin 2.5 GM/DL Blood Type A POSITIVE Antibody Screen NEGATIVE Crossmatch Leukocyte-Reduced Red Blood Cells Blood Bank Comment Nasal Screen MRSA (PCR) MRSA DETECTED Stool C. difficile Toxin (PCR) POSITIVE Stl C. difficile Toxin PRESUMPTIVE Epiderm 027 NEGATIVE Test 01/09/17 05:39 White Blood Count 17.6 TH/MM3 Red Blood Count 2.98 MIL/MM3 Hemoglobin 9.1 GM/DL Hematocrit 26.9 % Mean Corpuscular Volume 90.5 FL Mean Corpuscular Hemoglobin 30.5 PG Mean Corpuscular Hemoglobin 33.7 % Concent Red Cell Distribution Width 16.0 % Platelet Count 446 TH/MM3 Mean Platelet Volume 8.2 FL Neutrophils (%) (Auto) 86.3 % Lymphocytes (%) (Auto) 7.1 % Monocytes (%) (Auto) 6.1 % Eosinophils (%) (Auto) 0.3 % Basophils (%) (Auto) 0.2 % Neutrophils # (Auto) 15.2 TH/MM3 Lymphocytes # (Auto) 1.2 TH/MM3 Monocytes # (Auto) 1.1 TH/MM3 Eosinophils # (Auto) 0.0 TH/MM3 Basophils # (Auto) 0.0 TH/MM3 CBC Comment DIFF FINAL Differential Comment Sodium Level 144 MEQ/L Potassium Level 4.4 MEQ/L Chloride Level 112 MEQ/L Carbon Dioxide Level 23.8 MEQ/L Anion Gap 8 MEQ/L Blood Urea Nitrogen 38 MG/DL Creatinine 1.18 MG/DL Estimat Glomerular Filtration 44 ML/MIN Rate Random Glucose 176 MG/DL Calcium Level 7.8 MG/DL Physical Exam General General Appearance: Well Nourished, No Acute Distress, Comfortable, Pale Eyes Eye Exam: Pupils Equal, Pupils Reactive Ears & Nose Ears & Nose Exam: Nasal Mucosa [place] Throat Throat Exam: Oral Mucosa [place] & Moist Neck Neck Exam: Neck Supple, Trachea Midline Pulmonary Resp Exam: Clear Bilaterally, No Distress Cardiology CV Exam: Good Perfusion, Irregular Gastrointestinal/Abdomen GI Exam: Soft, Non-Tender, Bowel Sounds Present, Non-Distended Musculoskeletal MS Exam: Joints Intact Integumentary Skin Exam: Warm, Dry Extremeties Extremities Exam: No Edema, Pedal Pulses Palpable Neurologic Neuro Exam: Awake, Speech Clear, Moving All Extremities, No Focal Deficits VTE Prophylaxis VTE Prophylaxis Device: SCDs PUD Prophylasis PUD Prophylaxis: Protonix Assessment/Plan Problem List: (1) left lower infiltrate (2) Symptomatic anemia (3) Diabetes 1.5, managed as type 2 (4) KRISTINA (acute kidney injury) (5) History of CVA (cerebrovascular accident) (6) Clostridium difficile infection (7) GI bleed (8) Dementia (9) Atrial fibrillation Assessment/Plan 76-year-old white female presented from [facility] with coffee-ground emesis, heme-positive stools. Was noted severely anemic, hemoglobin 5.4, hematocrit 16.6. Patient on Xarelto for chronic A. fib. -Gastroenterology has been consulted for evaluation, d/w Dr. Chen, was on Xarelto needs to be off x 3 days. EGD poss. Tuesday -start Clear liquid diet Continue with cautious hydration Continue with serial H&H's s/p 2 units of packed cells, HH improved 9.1/26.9 Continue with octreotide and protonic strip -no active bleeding -for EGD ? tuesday Acute renal injury Continue with cautious hydration Avoid nephrotoxic agents -improving. Loose stools, recent diagnosis of C. difficile. On Flagyl PO at [facility] Stools for C. difficile positive -change to Flagyl PO, start Vanco PO -monitor electrolytes Chest x-ray findings of left lower lobe consolidation, noted with leukocytosis continue empiric antibiotics, Rocephin 1 g IV daily Recent UTI -Repeat UA-pending A. fib, stable Continuous cardiac telemetry hold Xarelto History hypertension, blood pressure low 100s -BP now going up, will resume some home meds Procardia, Hydralazine Hx seizures, on Keppra -resume Keppra Type 2 diabetes, uncontrolled Accu-Cheks before meals and at bedtime with insulin therapy as needed Possible underlying dementia Monitor patient closely SCDs for DVT prophylaxis, avoid anticoagulation Protonix gtt for GI prophylaxis HH stable, BP now trending upwards. No active bleeding Labs in am ok to transfer to [facility] D/W RN D/W Dr. Scott/Arden D/W pt. Patient was seen by myself and Dr. 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
--- NOTE | 2017-01-09 14:04 | EKG ---
Date Performed: 01/08/2017 Time Performed: 12:52:15 PTAGE: 76 years EKG: ATRIAL FIBRILLATION PROBABLE INFERIOR MYOCARDIAL INFARCTION Nonspecific T wave change Joon red to previous tracing, the changes of probable inferior myocardial infarction are new. T waves are more flattened anterolaterally in V5 and V6 ABNORMAL ECG PREVIOUS TRACING : 11/15/2013 14.59 DOCTOR: Cameron Ludwig Interpretating Date/Time 01/09/2017 14:03:47
[2017-01-09] MEDS: metroNIDAZOLE 500 MG TAB PO SCH (17:27)
[2017-01-09] MEDS: VANCOMYCIN 500 MG VIAL (FOR ORAL USE ONLY) PO SCH ×2 (17:27→22:29)
[2017-01-09] MEDS: cefTRIAXone INJ 1,000 MG in SODIUM CHLORIDE 0.9% INJ 100 ML IV SCH (17:28)
[2017-01-09] MEDS: hydrALAZINE HCL 25 MG TAB PO SCH (22:28)
[2017-01-09] MEDS: MIRTAZAPINE 15 MG TAB PO SCH (22:29)
[2017-01-09] MEDS: levETIRAcetam 500 MG/5 ML UDC PO SCH (22:29)
[2017-01-10] VITALS (7 sets, daily range): BP systolic 110–177; BP diastolic 53–78; PULSE 52–91; RESP 18–21; TEMP 97.4–98.6; O2SAT 93–97
[2017-01-10] MEDS: CHLORHEXIDINE GLUCONATE 2 % 1 PACK (2 CLOTHS)(taper/protocol) TOPICAL SCH (04:00)
[2017-01-10] MEDS: INSULIN ASPART SUPPLEMENTAL SCALE SQ SCH ×4 (05:44→21:00)
[2017-01-10] MEDS: D5-1/2 NS + KCL 20 MEQ INJ 1,000 ML IV SCH ×3 (05:44→21:39)
[2017-01-10] MEDS: PANTOPRAZOLE INJ 80 MG in SODIUM CHLORIDE 0.9% INJ 100 ML IV SCH ×2 (05:44→16:32)
[2017-01-10 06:56] LABS: AUTOMATED NEUTROPHIL # 9.9 TH/MM3 (1.8-7.7); BASOPHIL % 0.2 % (0.0-2.0); EOSINOPHIL # 0.6 TH/MM3 (0-0.4); EOSINOPHIL % 4.6 % (0.0-4.0); HEMATOCRIT 28.1 % (35.0-46.0); HEMO FLAGS DIFF FINAL; LYMPHOCYTE # 0.8 TH/MM3 (1.0-4.8); MEAN CELL VOLUME 91.7 FL (80.0-100.0); MEAN CORPUSCULAR HEMOGLOBIN 30.4 PG (27.0-34.0); MEAN CORPUSCULAR HGB CONC 33.1 % (32.0-36.0); MONO % 5.9 % (0.0-8.0); NEUT % 82.3 % (16.0-70.0); PLATELET COUNT 399 TH/MM3 (150-450); RED BLOOD COUNT 3.06 MIL/MM3 (4.00-5.30); RED CELL DISTRIBUTION WIDTH 16.1 % (11.6-17.2)
[2017-01-10 07:05] LABS: BICARBONATE 24.5 MEQ/L (21.0-32.0); POTASSIUM 4.3 MEQ/L (3.5-5.1)
[2017-01-10] MEDS: OCTREOTIDE INJ 500 MCG in SODIUM CHLORID 0.9% 500 ML INJ 500 ML IV SCH ×2 (08:32→16:32)
[2017-01-10] MEDS: hydrALAZINE HCL 25 MG TAB PO SCH ×2 (08:33→21:12)
[2017-01-10] MEDS: VANCOMYCIN 500 MG VIAL (FOR ORAL USE ONLY) PO SCH ×4 (08:33→21:11)
[2017-01-10] MEDS: levETIRAcetam 500 MG/5 ML UDC PO SCH ×2 (08:33→21:12)
[2017-01-10] MEDS: NIFEdipine 90 MG SUSTAINED RELEASE TAB PO SCH (08:33)
[2017-01-10] MEDS: metroNIDAZOLE 500 MG TAB PO SCH ×3 (08:33→16:33)
[2017-01-10] MEDS: SODIUM CHLORIDE 0.9% FLUSH 10 ML FLUSH IV FLUSH SCH ×2 (08:34→21:00)
--- NOTE | 2017-01-10 13:08 | HHI.PR ---
Subjective Subjective Remarks awakes to voice, demented has no complaints when asked no active bleeding, no hematemesis hh stable not eating much Review of Systems Constitutional Constitutional Remarks 12 point ROS unable to complete Vitals/Results Intake & Output 01/09/17 01/09/17 01/10/17 15:00 23:00 07:00 Intake Total 1394 ml 0 ml 0 ml Balance 1394 ml 0 ml 0 ml Intake Oral 0 ml 0 ml IV Total 1394 ml # Voids 1 1 2 # Bowel Movements 2 0 1 Vital Signs Vital Signs Date Time Temp Pulse Resp B/P Pulse Ox O2 Delivery O2 Flow Rate FiO2 01/10/17 12:37 98.1 91 20 110/53 96 01/10/17 08:50 52 01/10/17 08:50 Room Air 01/10/17 08:50 52 01/10/17 08:08 97.6 65 21 169/78 97 01/10/17 04:00 97.4 61 18 177/77 97 01/10/17 00:00 97.5 66 18 149/71 94 01/09/17 22:49 Room Air 01/09/17 20:00 97.5 60 14 135/66 99 01/09/17 19:00 97.5 58 20 163/71 98 01/09/17 16:00 56 01/09/17 16:00 98.1 56 17 148/67 96 01/09/17 15:00 60 18 145/70 97 01/09/17 14:00 54 19 152/76 97 01/09/17 14:00 54 CBC/BMP: 01/10/17 0630 01/10/17 0630 Lab Results Laboratory Tests Test 01/10/17 06:30 White Blood Count 12.0 TH/MM3 Red Blood Count 3.06 MIL/MM3 Hemoglobin 9.3 GM/DL Hematocrit 28.1 % Mean Corpuscular Volume 91.7 FL Mean Corpuscular Hemoglobin 30.4 PG Mean Corpuscular Hemoglobin 33.1 % Concent Red Cell Distribution Width 16.1 % Platelet Count 399 TH/MM3 Mean Platelet Volume 7.9 FL Neutrophils (%) (Auto) 82.3 % Lymphocytes (%) (Auto) 7.0 % Monocytes (%) (Auto) 5.9 % Eosinophils (%) (Auto) 4.6 % Basophils (%) (Auto) 0.2 % Neutrophils # (Auto) 9.9 TH/MM3 Lymphocytes # (Auto) 0.8 TH/MM3 Monocytes # (Auto) 0.7 TH/MM3 Eosinophils # (Auto) 0.6 TH/MM3 Basophils # (Auto) 0.0 TH/MM3 CBC Comment DIFF FINAL Differential Comment Sodium Level 142 MEQ/L Potassium Level 4.3 MEQ/L Chloride Level 112 MEQ/L Carbon Dioxide Level 24.5 MEQ/L Anion Gap 6 MEQ/L Blood Urea Nitrogen 24 MG/DL Creatinine 0.84 MG/DL Estimat Glomerular Filtration 66 ML/MIN Rate Random Glucose 141 MG/DL Calcium Level 7.7 MG/DL Physical Exam General General Appearance: Well Nourished, No Acute Distress, Comfortable, Pale Eyes Eye Exam: Pupils Equal, Pupils Reactive Ears & Nose Ears & Nose Exam: Nasal Mucosa [place] Throat Throat Exam: Oral Mucosa [place] & Moist Neck Neck Exam: Neck Supple, Trachea Midline Pulmonary Resp Exam: Clear Bilaterally, No Distress Cardiology CV Exam: Good Perfusion, Irregular Gastrointestinal/Abdomen GI Exam: Soft, Non-Tender, Bowel Sounds Present, Non-Distended Musculoskeletal MS Exam: Joints Intact Integumentary Skin Exam: Warm, Dry Extremeties Extremities Exam: No Edema, Pedal Pulses Palpable Neurologic Neuro Exam: Awake, Speech Clear, Moving All Extremities, No Focal Deficits VTE Prophylaxis VTE Prophylaxis Device: SCDs PUD Prophylasis PUD Prophylaxis: Protonix Assessment/Plan Problem List: (1) left lower infiltrate (2) Symptomatic anemia (3) Diabetes 1.5, managed as type 2 (4) KRISTINA (acute kidney injury) (5) History of CVA (cerebrovascular accident) (6) Clostridium difficile infection (7) GI bleed (8) Dementia (9) Atrial fibrillation Assessment/Plan 76-year-old white female presented from [facility] with coffee-ground emesis, heme-positive stools. Was noted severely anemic, hemoglobin 5.4, hematocrit 16.6. Patient on Xarelto for chronic A. fib. -Gastroenterology has been consulted for evaluation, d/w Dr. Chen, was on Xarelto needs to be off x 3 days. EGD poss. Tuesday -continue Clear liquid diet Continue with cautious hydration Continue with serial H&H's s/p 2 units of packed cells, HH improved 9.3/28.1 Continue with octreotide and protonic strip -no active bleeding -for EGD ? tuesday d/w ELIZABETH Caballero Acute renal injury Continue with cautious hydration Avoid nephrotoxic agents -improving. Loose stools, recent diagnosis of C. difficile. On Flagyl PO at [facility] Stools for C. difficile positive -change to Flagyl PO, start Vanco PO -monitor electrolytes Chest x-ray findings of left lower lobe consolidation, noted with leukocytosis WBC slowly coming down continue empiric antibiotics, Rocephin 1 g IV shmuel Recent UTI -Repeat UA-pending A. fib, stable Continuous cardiac telemetry hold Xarelto History hypertension, blood pressure low 100s -continue Procardia, Hydralazine Hx seizures, on Keppra -continue Keppra Type 2 diabetes, uncontrolled Accu-Cheks before meals and at bedtime with insulin therapy as needed Possible underlying dementia Monitor patient closely SCDs for DVT prophylaxis, avoid anticoagulation Protonix gtt for GI prophylaxis HH stable, BP now trending upwards. No active bleeding not eating much, enc PO intake inc. activity, PT for OOB poss EGD In am D/W RN D/W Dr. Scott D/W pt. Patient was seen by myself and Dr. 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
--- NOTE | 2017-01-10 16:02 | HHI.GIFU ---
Subjective Remarks Pt resting in bed, in no apparent distress. Denies abd pain, n/v. (Naye Savage) Objective Vitals I&O Vital Signs Date Time Temp Pulse Resp B/P Pulse Ox O2 Delivery O2 Flow Rate FiO2 01/10/17 12:37 98.1 91 20 110/53 96 01/10/17 08:50 52 01/10/17 08:50 Room Air 01/10/17 08:50 52 01/10/17 08:08 97.6 65 21 169/78 97 01/10/17 04:00 97.4 61 18 177/77 97 01/10/17 00:00 97.5 66 18 149/71 94 01/09/17 22:49 Room Air 01/09/17 20:00 97.5 60 14 135/66 99 01/09/17 19:00 97.5 58 20 163/71 98 I/O 01/09/17 01/09/17 01/09/17 01/10/17 01/10/17 01/10/17 07:00 15:00 23:00 07:00 15:00 23:00 Intake Total 1290 ml 1394 ml 0 ml 0 ml Balance 1290 ml 1394 ml 0 ml 0 ml Intake Oral 0 ml 0 ml IV Total 1290 ml 1394 ml # Voids 2 1 1 2 # Bowel Movements 2 2 0 1 Laboratory Laboratory Tests Test 01/10/17 06:30 White Blood Count 12.0 Red Blood Count 3.06 Hemoglobin 9.3 Hematocrit 28.1 Mean Corpuscular Volume 91.7 Mean Corpuscular Hemoglobin 30.4 Mean Corpuscular Hemoglobin 33.1 Concent Red Cell Distribution Width 16.1 Platelet Count 399 Mean Platelet Volume 7.9 Neutrophils (%) (Auto) 82.3 Lymphocytes (%) (Auto) 7.0 Monocytes (%) (Auto) 5.9 Eosinophils (%) (Auto) 4.6 Basophils (%) (Auto) 0.2 Neutrophils # (Auto) 9.9 Lymphocytes # (Auto) 0.8 Monocytes # (Auto) 0.7 Eosinophils # (Auto) 0.6 Basophils # (Auto) 0.0 CBC Comment DIFF FINAL Differential Comment Sodium Level 142 Potassium Level 4.3 Chloride Level 112 Carbon Dioxide Level 24.5 Anion Gap 6 Blood Urea Nitrogen 24 Creatinine 0.84 Estimat Glomerular Filtration 66 Rate Random Glucose 141 Calcium Level 7.7 Imaging Last Impressions Chest X-Ray 01/08/17 0000 Signed Impressions: Service Date/Time: Sunday, January 08, 2017 15:56 - CONCLUSION: Left lower lobar consolidation and possible associated pleural effusion. Ronni Casas MD Physical Exam HEENT: EOMI; atraumatic; no jaundice. CHEST: CTA CARDIAC: RRR ABDOMEN: Soft, nondistended, nontender; no hepatosplenomegaly; bowel sounds are present in all four quadrants. EXTREMITIES: No clubbing, cyanosis, or edema. SKIN: Normal; no rash; no jaundice. COLLECTION OFFICER: alert, mildly confused (Naye Savage) Assessment and Plan Plan ASSESSMENT Coffee ground emesis with heme-positive stools, No further emesis or active bleeding noted. Patient on Xarelto for chronic Afib, Xarelto on hold. INR 1.1 ( /3) Patient anemic at admission, stable now. HH 5.4/16.6 (6/3), 9.1/26.9 (6/4). S/ p 2 units of blood. WBC 14.4 (6/3), 17.6 (6/4). Cdiff, on Flagyl PLAN -EGD tomorrow -Obtain consents -NPO -IV fluids -Continue Flagyl for Cdiff -Monitor HH, transfuse as necessary -Further recommendations to follow based on results of above. Patient seen and examined by Dr. Chen and myself and this note is written on his behalf. (Naye Savage) Physician Comments Seen and examined, plan for EGD in AM, further recommendations to follow. ( Sundeep Chen MD) Naye Savage Jan 10, 2017 16:02 Sundeep Chen MD Jan 10, 2017 22:16
[2017-01-10] MEDS: cefTRIAXone INJ 1,000 MG in SODIUM CHLORIDE 0.9% INJ 100 ML IV SCH (16:33)
[2017-01-10] MEDS: MIRTAZAPINE 15 MG TAB PO SCH (21:12)
[2017-01-11] VITALS (9 sets, daily range): BP systolic 145–200; BP diastolic 77–119; PULSE 76–111; RESP 18–21; TEMP 97.6–98.3; O2SAT 94–96
[2017-01-11] MEDS: PANTOPRAZOLE INJ 80 MG in SODIUM CHLORIDE 0.9% INJ 100 ML IV SCH ×3 (00:57→20:52)
[2017-01-11] MEDS: OCTREOTIDE INJ 500 MCG in SODIUM CHLORID 0.9% 500 ML INJ 500 ML IV SCH ×3 (02:42→23:43)
[2017-01-11] MEDS: CHLORHEXIDINE GLUCONATE 2 % 1 PACK (2 CLOTHS)(taper/protocol) TOPICAL SCH (03:16)
[2017-01-11] MEDS: INSULIN ASPART SUPPLEMENTAL SCALE SQ SCH ×4 (06:08→20:40)
[2017-01-11] MEDS ORDERED: ENALAPRILAT 1.25 MG/ML VIAL IV PUSH PRN (06:15)
[2017-01-11] MEDS ORDERED: ENALAPRILAT 1.25 MG/ML VIAL IV PUSH ONE (06:15)
[2017-01-11 06:16] LABS: MEAN CELL VOLUME 91.4 FL (80.0-100.0); MEAN CORPUSCULAR HEMOGLOBIN 30.8 PG (27.0-34.0); MEAN CORPUSCULAR HGB CONC 33.7 % (32.0-36.0); PLATELET COUNT 405 TH/MM3 (150-450); RED BLOOD COUNT 2.84 MIL/MM3 (4.00-5.30); RED CELL DISTRIBUTION WIDTH 16.5 % (11.6-17.2); REVIEW FLAG FINAL
[2017-01-11 06:41] LABS: POTASSIUM 4.4 MEQ/L (3.5-5.1)
[2017-01-11 06:57] LABS: CALCIUM-PROTEIN CORRECTED 8.8 MG/DL (8.5-10.1)
[2017-01-11] MEDS: levETIRAcetam 500 MG/5 ML UDC PO SCH ×2 (08:18→20:47)
[2017-01-11] MEDS: metroNIDAZOLE 500 MG TAB PO SCH ×3 (08:18→17:43)
[2017-01-11] MEDS: hydrALAZINE HCL 25 MG TAB PO SCH ×2 (08:18→20:47)
[2017-01-11] MEDS: VANCOMYCIN 500 MG VIAL (FOR ORAL USE ONLY) PO SCH ×4 (08:19→20:47)
[2017-01-11] MEDS: NIFEdipine 90 MG SUSTAINED RELEASE TAB PO SCH (08:20)
[2017-01-11] MEDS: SODIUM CHLORIDE 0.9% FLUSH 10 ML FLUSH IV FLUSH SCH ×2 (08:21→21:00)
--- NOTE | 2017-01-11 11:10 | HHI.PR ---
Subjective Subjective Remarks awakes to voice, demented, oriented to self more talkative today has no complaints when asked no active bleeding, no hematemesis NPO for EGD Review of Systems Constitutional Constitutional Remarks 12 point ROS unable to complete Vitals/Results Intake & Output 01/10/17 01/10/17 01/11/17 15:00 23:00 07:00 Intake Total 620 ml 1406 ml Balance 620 ml 1406 ml Intake Oral 240 ml 120 ml IV Total 380 ml 1286 ml # Voids 3 2 0 # Bowel Movements 0 0 0 Vital Signs Vital Signs Date Time Temp Pulse Resp B/P Pulse Ox O2 Delivery O2 Flow Rate FiO2 01/11/17 08:08 98.3 90 21 164/119 94 01/11/17 06:50 184/92 01/11/17 06:06 97.6 89 18 200/84 95 01/11/17 01:13 76 01/11/17 00:00 98.2 76 18 163/77 96 01/11/17 00:00 Room Air 01/10/17 21:15 Room Air 01/10/17 20:00 98.6 80 18 152/59 94 01/10/17 16:08 98.2 83 20 116/58 93 01/10/17 12:37 98.1 91 20 110/53 96 CBC/BMP: 01/11/17 0600 01/11/17 0600 Lab Results Laboratory Tests Test 01/11/17 06:00 White Blood Count 9.0 TH/MM3 Red Blood Count 2.84 MIL/MM3 Hemoglobin 8.8 GM/DL Hematocrit 26.0 % Mean Corpuscular Volume 91.4 FL Mean Corpuscular Hemoglobin 30.8 PG Mean Corpuscular Hemoglobin 33.7 % Concent Red Cell Distribution Width 16.5 % Platelet Count 405 TH/MM3 Mean Platelet Volume 7.4 FL Sodium Level 139 MEQ/L Potassium Level 4.4 MEQ/L Chloride Level 109 MEQ/L Carbon Dioxide Level 24.0 MEQ/L Anion Gap 6 MEQ/L Blood Urea Nitrogen 12 MG/DL Creatinine 0.80 MG/DL Estimat Glomerular Filtration 69 ML/MIN Rate Random Glucose 148 MG/DL Calcium Level 7.4 MG/DL Protein Corrected Calcium 8.8 MG/DL Total Protein 4.7 GM/DL Physical Exam General General Appearance: Well Nourished, No Acute Distress, Comfortable, Pale Eyes Eye Exam: Pupils Equal, Pupils Reactive Ears & Nose Ears & Nose Exam: Nasal Mucosa [place] Throat Throat Exam: Oral Mucosa [place] & Moist Neck Neck Exam: Neck Supple, Trachea Midline Pulmonary Resp Exam: Clear Bilaterally, No Distress Cardiology CV Exam: Good Perfusion, Irregular Gastrointestinal/Abdomen GI Exam: Soft, Non-Tender, Bowel Sounds Present, Non-Distended Musculoskeletal MS Exam: Joints Intact Integumentary Skin Exam: Warm, Dry Extremeties Extremities Exam: No Edema, Pedal Pulses Palpable Neurologic Neuro Exam: Awake, Speech Clear, Moving All Extremities, No Focal Deficits VTE Prophylaxis VTE Prophylaxis Device: SCDs PUD Prophylasis PUD Prophylaxis: Protonix Assessment/Plan Problem List: (1) left lower infiltrate (2) Symptomatic anemia (3) Diabetes 1.5, managed as type 2 (4) KRISTINA (acute kidney injury) (5) History of CVA (cerebrovascular accident) (6) Clostridium difficile infection (7) GI bleed (8) Dementia (9) Atrial fibrillation Assessment/Plan 76-year-old white female presented from [facility] with coffee-ground emesis, heme-positive stools. Was noted severely anemic, hemoglobin 5.4, hematocrit 16.6. Patient on Xarelto for chronic A. fib. -Gastroenterology has been consulted for evaluation, d/w Dr. Chen, was on Xarelto needs to be off x 3 days. -NPO Continue with cautious hydration Continue with serial H&H's s/p 2 units of packed cells, HH 8.8/26 Continue with octreotide and protonic strip -no active bleeding -EGD today Acute renal injury Continue with cautious hydration Avoid nephrotoxic agents -improving. Loose stools, recent diagnosis of C. difficile. On Flagyl PO at [facility] Stools for C. difficile positive -continue Flagyl and Vanco PO -monitor electrolytes Chest x-ray findings of left lower lobe consolidation, noted with leukocytosis WBC slowly coming down stop Rocephin Recent UTI -Repeat UA-pending A. fib, stable Continuous cardiac telemetry hold Xarelto History hypertension, blood pressure low 100s -continue Procardia, Hydralazine -BP up. Vasotec IV added PRN Hx seizures, on Keppra -continue Keppra Type 2 diabetes, uncontrolled Accu-Cheks before meals and at bedtime with insulin therapy as needed Possible underlying dementia Monitor patient closely SCDs for DVT prophylaxis, avoid anticoagulation Protonix gtt for GI prophylaxis for EGD today, f/u results dc planning soon, poss. tomorrow Labs in am D/W RN D/W Dr. Scott D/W pt. Patient was seen by myself and Dr. 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
[2017-01-11] MEDS: D5-1/2 NS + KCL 20 MEQ INJ 1,000 ML IV SCH ×2 (12:00→20:53)
[2017-01-11] MEDS: MIRTAZAPINE 15 MG TAB PO SCH (20:47)
[2017-01-12] VITALS (13 sets, daily range): BP systolic 107–147; BP diastolic 60–88; PULSE 79–113; RESP 18–30; TEMP 92.4–98; O2SAT 83–100
[2017-01-12] MEDS: CHLORHEXIDINE GLUCONATE 2 % 1 PACK (2 CLOTHS)(taper/protocol) TOPICAL SCH (03:23)
[2017-01-12] MEDS: INSULIN ASPART SUPPLEMENTAL SCALE SQ SCH ×3 (06:23→15:48)
[2017-01-12] MEDS: hydrALAZINE HCL 25 MG TAB PO SCH ×2 (08:29→21:00)
[2017-01-12] MEDS: SODIUM CHLORIDE 0.9% FLUSH 10 ML FLUSH IV FLUSH SCH (08:29)
[2017-01-12] MEDS: metroNIDAZOLE 500 MG TAB PO SCH ×4 (08:30→18:28)
[2017-01-12] MEDS: VANCOMYCIN 500 MG VIAL (FOR ORAL USE ONLY) PO SCH ×5 (08:30→21:00)
[2017-01-12] MEDS: NIFEdipine 90 MG SUSTAINED RELEASE TAB PO SCH (08:30)
[2017-01-12] MEDS: levETIRAcetam 500 MG/5 ML UDC PO SCH ×2 (08:30→21:00)
[2017-01-12] MEDS: D5-1/2 NS + KCL 20 MEQ INJ 1,000 ML IV SCH (08:40)
[2017-01-12] MEDS: OCTREOTIDE INJ 500 MCG in SODIUM CHLORID 0.9% 500 ML INJ 500 ML IV SCH (08:40)
[2017-01-12] MEDS: PANTOPRAZOLE INJ 80 MG in SODIUM CHLORIDE 0.9% INJ 100 ML IV SCH (08:40)
--- NOTE | 2017-01-12 10:50 | HHI.PR ---
Subjective Subjective Remarks Resting in bed Eyes open, but minimal response except for facial grimace Soft wrist restraints on Friend at bedside Color very pale Low volumes with respiratory rate (Jud Abbott) Review of Systems Constitutional Constitutional: Fatigue, Weakness Constitutional Remarks Minimal review of systems due to patient's altered mental status (Jud Abbott) Pulmonary Respiratory: Shortness of Breath (low volumes) (Jud Abbott) GI/Abdomen GI/Abdomen Remarks No acute abdominal pain (Jud Abbott) Musculoskeletal MS: Weakness (uJd Abbott) Neurologic Neurologic: Confused Neurologic Remarks Altered mental status (Jud Abbott) Vitals/Results Intake & Output 01/11/17 01/11/17 01/12/17 15:00 23:00 07:00 Intake Total 120 ml 1468 ml Output Total 2 ml Balance -2 ml 120 ml 1468 ml Intake Oral 120 ml 0 ml IV Total 1468 ml Output Urine Total 2 ml # Voids 3 1 1 # Bowel Movements 0 4 Vital Signs Vital Signs Date Time Temp Pulse Resp B/P Pulse Ox O2 Delivery O2 Flow Rate FiO2 01/12/17 08:07 97.8 82 19 126/64 98 01/12/17 04:00 97.4 92 18 133/80 95 01/12/17 02:27 101 01/12/17 00:00 97.6 102 18 134/88 96 01/11/17 20:40 Room Air 01/11/17 20:00 98.2 111 18 162/89 96 01/11/17 16:13 97.6 96 20 145/81 94 01/11/17 13:47 97.9 87 20 159/77 96 01/11/17 12:08 97.9 87 20 159/77 96 (Jud Abbott) CBC/BMP: 01/11/17 0600 01/11/17 0600 Current Medications Administered Medications Medications (Trade) Dose Ordered Sig/Leida Route PRN Reason Start Time Stop Time Status Last Admin Dose Admin Pantoprazole Sodium 80 mg/ Sodium Chloride 100 ml @ 10 mls/hr Q10H IV 01/08/17 13:15 01/12/17 08:40 Potassium Chloride/Dextrose/ Sod Cl (D5-1/2 NS + KCl 20 Meq Inj) 1,000 ml @ 100 mls/hr Q10H IV 01/08/17 14:00 01/12/17 08:40 Sodium Chloride 2 ml 2 ml BID IV FLUSH 01/08/17 21:00 01/11/17 08:21 Octreotide Acetate/Sodium Chloride (SandoSTATIN INJ/ NS 500 ml Inj) 500.5 ml @ 50 mls/hr Q10H IV 01/08/17 15:45 01/12/17 08:40 Miscellaneous Information Patient in critical care unit? Ass... [id number] 01/08/17 19:30 01/08/17 19:30 Chlorhexidine Gluconate (Chlorhexidine 2% Cloth) 3 pack DAILY@04 TOPICAL 01/09/17 04:00 01/13/17 04:01 01/12/17 03:23 Vancomycin HCl (VANCOMYCIN for oral use only) 250 mg QID PO 01/09/17 18:00 01/11/17 20:47 Hydralazine HCl (Apresoline) 25 mg BID PO 01/09/17 21:00 01/11/17 20:47 Levetriacetam (Keppra Liq) 100 mg BID PO 01/09/17 21:00 01/11/17 20:47 Metronidazole (Flagyl) 500 mg TID PO 01/09/17 18:00 01/11/17 17:43 Mirtazapine (Remeron) 7.5 mg HS PO 01/09/17 21:00 01/11/17 20:47 Nifedipine (Procardia Xl) 90 mg DAILY PO 01/10/17 09:00 01/10/17 08:33 Enalaprilat (Vasotec Inj) 1.25 mg Q4H PRN IV PUSH SBP>170, DBP>100 01/11/17 06:15 01/11/17 09:46 (Jud Abbott) Physical Exam General General Appearance: Well Nourished, No Acute Distress, Comfortable, Pale, Anxious (mild) (Jud Abbott) Eyes Eye Exam: Pupils Equal, Pupils Reactive (Jud Abbott) Ears & Nose Ears & Nose Exam: Nasal Mucosa [place] (pale) (Scar,Jud M. [employer]OT[employer] OV[employer] TENDER) Throat Throat Exam: Oral Mucosa [place] & Moist (pale) (Sumner,Jud M. [employer]OTARY [employer] TENDER) Neck Neck Exam: Neck Supple, Trachea Midline (Sumner,Jud M. [employer]OT[employer] TENDER) Pulmonary Resp Exam: Clear Bilaterally, No Distress, Decreased Bases, Diminished Breath Sounds, Poor Inspiratory Effort (low volumes) (Sumner,Jud M. [employer]OTARY [employer] TENDER) Cardiology CV Exam: Good Perfusion, Irregular CV Remarks Rhythm is regular (Sumner,Jud M. ROTARY [employer] TENDER) Gastrointestinal/Abdomen GI Exam: Soft, Non-Tender, Bowel Sounds Present, Non-Distended (Scar,Jud M. [employer]OT[employer] TENDER) Musculoskeletal MS Exam: Joints Intact, Atrophy (Scar,Jud M. ROTARY [employer] TENDER) Integumentary Skin Exam: Warm, Dry Skin Remarks Pale thin skin turgor (Sumner,Jud M. [employer]OT[employer] TENDER) Extremeties Extremities Exam: No Edema, Pedal Pulses Palpable (ScarJud M. ROTARY [employer] TENDER) Neurologic Neuro Exam: Awake, Speech Clear, Moving All Extremities (randomly), No Focal Deficits (Scar,Jud M. [employer]OTARY [employer] TENDER) VTE Prophylaxis VTE Prophylaxis Device: SCDs (Sumner,Jud M. [employer]OTARY [employer] TENDER) PUD Prophylasis PUD Prophylaxis: Protonix (Scar,Jud M. [employer]OTARY [employer] TENDER) Assessment/Plan Problem List: (1) left lower infiltrate (2) Symptomatic anemia (3) Diabetes 1.5, managed as type 2 (4) KRISTINA (acute kidney injury) (5) History of CVA (cerebrovascular accident) (6) Clostridium difficile infection (7) GI bleed (8) Dementia (9) Atrial fibrillation Assessment/Plan Labs reviewed, hemoglobin currently 8.8 ON 6-6. 2 units transfused this admission Acute renal injury continues Gentle hydration hydration Vital signs reviewed normal trends for now -Gastroenterology has been consulted for evaluation, d/w Dr. Chen, was on Xarelto needs to be off x 3 days. NPO, before this admission patient had been on Xarelto. Continue with gentle IV hydration, no obvious bleeding noted Continue with octreotide and protonic strip POA is questioning whether patient needs further GI testing based on her overall condition. Loose stools, recent diagnosis of C. difficile. Stool still positive for C. difficile Medical management with Flagyl and Vanco PO Chest x-ray findings of left lower lobe consolidation, noted with leukocytosis Monitor swallow for any aspiration A. fib, stable Continue telemetry monitoring hypertension, medical management BP stable for now Vasotec IV , PRN Type 2 diabetes, uncontrolled Accu-Cheks before meals and at bedtime with insulin therapy as needed Possible underlying dementia Patient now and soft wrist restraints, altered mental status and weakened Ordered UA again to evaluate for UTI, and is this increasing her altered mental status Friend and POA of patient are questioning big picture for patient's treatment regimen and keep in her quality of life in check. Discussed at length with friend at the bedside. Offered a palliative care consult to assist with information, as well as the best thing for patient. We'll follow needs, as POA is currently not at the hospital and lives in the [place] area. SCDs for DVT prophylaxis Protonix gtt for GI prophylaxis D/W RN D/W Dr. Scott, seen on her behalf D/W pt. and her best friend in the room (Jud Abbott) Assessment/Plan patient seen and examined Palliative care input noted: DNR, no agrressive care, intervention. 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
[2017-01-12] MEDS ORDERED: LORazepam 2 MG/ML VIAL IV ONE (11:45)
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
--- NOTE | 2017-01-12 17:03 | RADRPT ---
EXAM DATE/TIME: 01/12/2017 15:58 [facility] COMPARISON: CHEST SINGLE AP, January 08, 2017, 15:56. INDICATIONS : Short of breath. MEDICAL HISTORY : None. SURGICAL HISTORY : infuse a port ENCOUNTER: Initial ACUITY: 4 - 6 days PAIN SCORE: Non-responsive. LOCATION: Bilateral chest FINDINGS: There is an [id number] in place in the right chest the catheter is in good position. There is a large left pleural effusion. There is a small right effusion. There is diffuse interstitia l prominence. Exam would suggest congestive failure. The osseous structures are intact. CONCLUSION: 1. Large effusion on the right. There is a small effusion on the left. There is diffuse interstitial prominence. Exam would suggest congestive failure. Findings are worsened compared to prior. Star Carrillo MD on January 12, 2017 at 16:59 Board Certified Radiologist. This report was verified electronically.
[2017-01-12] MEDS ORDERED: FUROSEMIDE 40 MG/4 ML VIAL IV PUSH ONE (18:00)
[2017-01-12] MEDS: MIRTAZAPINE 15 MG TAB PO SCH (21:00)
[2017-01-13] MEDS: SODIUM CHLORIDE 0.9% FLUSH 10 ML FLUSH IV FLUSH SCH ×2 (00:20→09:00)
[2017-01-13] MEDS: MIRTAZAPINE 15 MG TAB PO SCH (00:20)
[2017-01-13] MEDS: PANTOPRAZOLE SODIUM 40 MG VIAL IV PUSH SCH ×2 (00:20→09:00)
[2017-01-13] MEDS: levETIRAcetam 500 MG/5 ML UDC PO SCH ×2 (00:20→09:00)
[2017-01-13] MEDS: hydrALAZINE HCL 25 MG TAB PO SCH ×2 (00:20→09:00)
[2017-01-13] MEDS: VANCOMYCIN 500 MG VIAL (FOR ORAL USE ONLY) PO SCH ×2 (00:21→09:00)
[2017-01-13] MEDS: CHLORHEXIDINE GLUCONATE 2 % 1 PACK (2 CLOTHS)(taper/protocol) TOPICAL SCH (04:15)
[2017-01-13 05:40] VITALS: BP 105/70; PULSE 89; RESP 34; TEMP 94.5; O2SAT 96
[2017-01-13] MEDS: D5-1/2 NS + KCL 20 MEQ INJ 1,000 ML IV SCH (05:48)
[2017-01-13 08:00] VITALS: BP 94/50; PULSE 92; RESP 20; TEMP 97.4; O2SAT 97
[2017-01-13] MEDS: NIFEdipine 90 MG SUSTAINED RELEASE TAB PO SCH (09:00)
[2017-01-13] MEDS: metroNIDAZOLE 500 MG TAB PO SCH (09:00)
--- NOTE | 2017-01-13 17:58 | HHI.DS ---
Discharge Summary Admission Date Jan 08, 2017 at 13:57 Discharge Date: Jan 13, 2017 Admitting Diagnosis GI bleed; symptomatic anemia (1) GI bleed Diagnosis: Principal (2) KRISTINA (acute kidney injury) Diagnosis: Principal (3) Symptomatic anemia Diagnosis: Principal (4) Atrial fibrillation Diagnosis: Principal (5) Dementia Diagnosis: Secondary (6) Clostridium difficile infection Diagnosis: Principal (7) History of CVA (cerebrovascular accident) Diagnosis: Secondary (8) Diabetes 1.5, managed as type 2 Diagnosis: Secondary (9) left lower infiltrate Diagnosis: Principal Brief History This was a 76-year-old elderly female sent from a local [facility] for evaluation of coffee-ground emesis. Patient was a poor historian, possibly demented and unable to provide any details. Patient was significant past medical history of A. fib on Xarelto, hypertension, cervical cancer, type 2 diabetes, remote intracranial bleed. Patient had no complaints when asked. Reported to emergency room that she had abdominal pain and loose stools. Review of [facility] records showed that patient was recently diagnosed with C. difficile and was put on Flagyl. She was also completing treatment for urinary tract infection. CBC/BMP: 01/11/17 0600 01/11/17 0600 Significant Findings Laboratory Tests Test 01/11/17 06:00 Red Blood Count 2.84 MIL/MM3 (4.00-5.30) Hemoglobin 8.8 GM/DL (11.6-15.3) Hematocrit 26.0 % (35.0-46.0) Chloride Level 109 MEQ/L (98-107) Estimat Glomerular Filtration 69 ML/MIN (>89) Rate Random Glucose 148 MG/DL (74-106) Calcium Level 7.4 MG/DL (8.5-10.1) Total Protein 4.7 GM/DL (6.4-8.2) Imaging Last Impressions Chest X-Ray 01/12/17 0000 Signed Impressions: Service Date/Time: Thursday, January 12, 2017 15:58 - CONCLUSION: 1. Large effusion on the right. There is a small effusion on the left. There is diffuse interstitial prominence. Exam would suggest congestive failure. Findings are worsened compared to prior. Star Carrillo MD Transfer Summary Patient . Hospital Course In the emergency room, laboratory workup was completed. CBC was significant for leukocytosis, WBC 14.4. She was noted significantly anemic, hemoglobin 5.4 hematocrit 16.6. Heme-positive stools. BMP significant for acute renal injury , BUN 45, creatinine 1.43. Random glucose 239. INR 1.1. Chest x-ray completed. There was no reported fever. Patient was started on Protonix and octreotide drip. 2 units of blood have been ordered. Patient had a large amount of coffee-ground emesis while in the ER, proximally [address] Chen was called from the emergency room and will be seeing patient. Patient was be admitted to the intensive care unit for further evaluation and treatment. Pt Condition on Discharge: Stable Discharge Disposition: Hospice/ Home Discharge Instructions DIET: Follow Instructions for: As Tolerated, No Restrictions Activities you can perform: Regular-No Restrictions () Additional Information Patient in hospital. Jud Abbott Jan 13, 2017 17:58
--- NOTE | 2017-01-13 18:00 | HHI.DS ---
Discharge Summary Admission Date Jan 08, 2017 at 13:57 Discharge Date: Jan 13, 2017 Admitting Diagnosis GI bleed; symptomatic anemia (1) GI bleed Diagnosis: Principal (2) KRISTINA (acute kidney injury) Diagnosis: Principal (3) Symptomatic anemia Diagnosis: Principal (4) Atrial fibrillation Diagnosis: Principal (5) Dementia Diagnosis: Secondary (6) Clostridium difficile infection Diagnosis: Principal (7) History of CVA (cerebrovascular accident) Diagnosis: Secondary (8) Diabetes 1.5, managed as type 2 Diagnosis: Secondary (9) left lower infiltrate Diagnosis: Principal Brief History This was a 76-year-old elderly female sent from a local [facility] for evaluation of coffee-ground emesis. Patient was a poor historian, possibly demented and unable to provide any details. Patient was significant past medical history of A. fib on Xarelto, hypertension, cervical cancer, type 2 diabetes, remote intracranial bleed. Patient had no complaints when asked. Reported to emergency room that she had abdominal pain and loose stools. [facility] of [facility] records showed that patient was recently diagnosed with C. difficile and was put on Flagyl. She was also completing treatment for urinary tract infection. CBC/BMP: 01/11/17 0600 01/11/17 0600 Significant Findings Laboratory Tests Test 01/11/17 06:00 Red Blood Count 2.84 MIL/MM3 (4.00-5.30) Hemoglobin 8.8 GM/DL (11.6-15.3) Hematocrit 26.0 % (35.0-46.0) Chloride Level 109 MEQ/L (98-107) Estimat Glomerular Filtration 69 ML/MIN (>89) Rate Random Glucose 148 MG/DL (74-106) Calcium Level 7.4 MG/DL (8.5-10.1) Total Protein 4.7 GM/DL (6.4-8.2) Imaging Last Impressions Chest X-Ray 01/12/17 0000 Signed Impressions: Service Date/Time: Thursday, January 12, 2017 15:58 - CONCLUSION: 1. Large effusion on the right. There is a small effusion on the left. There is diffuse interstitial prominence. Exam would suggest congestive failure. Findings are worsened compared to prior. Star Carrillo MD PE at Discharge General Appearance: Well Nourished, No Acute Distress, Comfortable, Pale, Anxious (mild) ([place],Jud [employer]) Eyes Eye Exam: Pupils Equal, Pupils Reactive (Scar,Jud [employer]) Ears & Nose Ears & Nose Exam: Nasal Mucosa [place] (pale) (Scar,Jud [employer]) Throat Throat Exam: Oral Mucosa [place] & Moist (pale) (Scar,Jud [employer]) Neck Neck Exam: Neck Supple, Trachea Midline (Scar,Jud [employer]) Pulmonary Resp Exam: Clear Bilaterally, No Distress, Decreased Bases, Diminished Breath Sounds, Poor Inspiratory Effort (low volumes) (Scar,Jud [employer]) Cardiology CV Exam: Good Perfusion, Irregular CV Remarks Rhythm is regular ([place],Jud [employer]) Gastrointestinal/Abdomen GI Exam: Soft, Non-Tender, Bowel Sounds Present, Non-Distended (Scar,Jud [employer]) Musculoskeletal MS Exam: Joints Intact, Atrophy (Scar,Jud [employer]) Integumentary Skin Exam: Warm, Dry Skin Remarks Pale thin skin turgor (Jud Abbott M[employer]) Extremeties Extremities Exam: No Edema, Pedal Pulses Palpable ([place],Susan [employer]) Neurologic Neuro Exam: Awake, Speech Clear, Moving All Extremities (randomly), No Focal Deficits ([place],Jud [employer]) VTE Prophylaxis VTE Prophylaxis Device: SCDs ([place] [employer]) PUD Prophylasis PUD Prophylaxis: Protonix ([place]) Hospital Course These are the diagnoses that were used to treat this patient during her hospital course and used for her plan of care. (1) left lower infiltrate (2) Symptomatic anemia (3) Diabetes 1.5, managed as type 2 (4) KRISTINA (acute kidney injury) (5) History of CVA (cerebrovascular accident) (6) Clostridium difficile infection (7) GI bleed (8) Dementia (9) Atrial fibrillation Labs reviewed, hemoglobin currently 8.8 ON 6-6. 2 units transfused this admission, patient had multiple labs and her abnormals were reviewed and or treated as warranted Acute renal injury continues even though patient is receiving aggressive care Gentle hydration continued throughout her hospital stay Vital signs reviewed normal trends until the last 24 hours. Patient's core temperature begin dropping in the ED of 01/12/17. Dr. bonds was paged and updated on patient's condition. Palliative care has been consult sitting gotten involved on 01/12/17 -Gastroenterology has been consulted for evaluation during this hospital course. d/w Dr. Chen, was on Xarelto needs to be off x 3 days if patient stabilized NPO, before this admission patient had been on Xarelto. Continue with gentle IV hydration, no obvious bleeding noted Continue with octreotide and protonic strip throughout her hospital stay, but continued to decline. POA is questioning whether patient needs further GI testing based on her overall condition. Loose stools, recent diagnosis of C. difficile. Stool still positive for C. difficile Medical management with Flagyl and Vanco PO Chest x-ray findings of left lower lobe consolidation, noted with leukocytosis Monitor swallow for any aspiration A. fib, stable Continue telemetry monitoring hypertension, medical management BP stable for now Vasotec IV , PRN Type 2 diabetes, uncontrolled Accu-Cheks before meals and at bedtime with insulin therapy as needed Possible underlying dementia Patient now and soft wrist restraints, altered mental status and weakened Ordered UA again to evaluate for UTI, and is this increasing her altered mental status Patient received supportive care and aggressive therapy up until last 24 hours of her hospital stay. Friend and POA of patient are questioning big picture for patient's treatment regimen and keep in her quality of life in check. Discussed at length with friend at the bedside. Offered a palliative care consult to assist with information, as well as the best thing for patient. We'll follow needs, as POA is currently not at the hospital and lives in the [place] area.. Patient's CODE STATUS was changed to DO NOT RESUSCITATE. Discharge planning was initiated for hospice med facility. Patient before leaving the hospital. SCDs for DVT prophylaxis during her hospital stay Protonix gtt for GI prophylaxis during her hospital Dr. garza saw patient in this is her review on the last day of hospital stay patient seen and examined Palliative care input noted: DNR, no agrressive care, intervention. Hospice consulted decrease i/v fluids d/c Protonix gtt and Octreotide gtt switch to PPI q12h congestion noted , CXR pending , may need lasix Ok to transfer to care center when bed available discussed with patient discussed with nursing staff d/w Jud JOHNSON Pt Condition on Discharge: Guarded Discharge Disposition: Hospice/Med Facility () Discharge Instructions Activities you can perform: Regular-No Restrictions () Additional Information Patient , before transition into next facility Jud Abbott Jan 13, 2017 18:00
== END 2017-01-13 15:30 | disposition expired | DRG 378 ==
LOC: NEPC 12:08 → NEDA 13:57 → HIME 17:40 → N04A 01-09 18:43
PROVIDERS: ADMIT Internal Medicine; ATTEND Internal Medicine
PROC: 30233N1 Transfusion of Nonautologous Red Blood Cells into Peripheral Vein, Percutaneous Approach (ICD-10-PCS; principal; 2017-01-12)
DX: K92.2 Gastrointestinal hemorrhage, unspecified (principal); N17.9 Acute kidney failure, unspecified; A04.7 Enterocolitis due to Clostridium difficile; F03.90 Unspecified dementia, unspecified severity, without behavioral disturbance, psychotic disturbance, mood disturbance, and anxiety; I10 Essential (primary) hypertension; R56.9 Unspecified convulsions; E11.65 Type 2 diabetes mellitus with hyperglycemia; D64.9 Anemia, unspecified; I48.2 Chronic atrial fibrillation; Z79.01 Long term (current) use of anticoagulants; Z86.73 Personal history of transient ischemic attack (TIA), and cerebral infarction without residual deficits; Z79.84 Long term (current) use of oral hypoglycemic drugs; Z78.1 Physical restraint status; Z66 Do not resuscitate
CPT/HCPCS: 36430; 71010; 76937; 80048; 80053; 82948; 84155; 85007; 85014; 85018; 85025; 85027; 85610; 85730; 86850; 86900; 86901; 86920; 87493; 87641; 93005; 96361; 96365; 96375; C9113; J0696; J1815; J1940; J2060; J2354; J2405; J3480; J7040; J7050; P9016